=== PATIENT | female | born 1990 | race Caucasian/White ===

== ENCOUNTER 2022-12-14 10:25 | Inpatient (IN) | payer MEDICAID, OTHER ==
[~2022-12-14] VITALS: Ht 157.5 cm; Wt 97.5 kg
[~2022-12-14 10:25] MED LIST: ACYC400T19 PO; AMOX-520 PO; COR3.125 PO; FLUT1BLS3 INH; FURO-149 PO; IPRA4AER INH; LACT1CAP57 PO; PANT20TA2 PO; POTA-197 PO; SER25 PO; SPIR25TA PO
--- NOTE | 2022-12-14 10:32 | NUR ---
Placed in room 05 . Placed on survey research manager, blood pressure machine and pulse oximeter. To gown for exam. Side rails up. Report given to Jose Ramon ROSALES.
[2022-12-14 10:34] VITALS: BP_SYST 120
--- NOTE | 2022-12-14 10:35 | NUR ---
Pt bib caregiver from home with c/o SOB and chest pain x2 days, reports h/o CHF and COPD, currently on home hospice and was told she had fluid overload. Pt was given lasix by hospice nurse but was ineffective. O2 88% on RA upon arrival, RT notified and pt placed on bipap
--- NOTE | 2022-12-14 10:44 | NUR ---
# 20 gauge angiocath placed to LAC. Use of asceptic technique. Opsite placed over site. Blood return noted. Blood for lab drawn from site. Flushed with 10 cc of normal saline. No evidence of infiltration noted. Patient tolerated well.
[2022-12-14] MEDS ORDERED: FUROSEMIDE 100 MG/10 ML VIAL IVP ONE (10:45)
[2022-12-14] MEDS ORDERED: IPRATROPIUM/ALBUTEROL SULFATE 3 ML AMPUL.NEB (DUONEB) INH ONE (10:45)
[2022-12-14] MEDS ORDERED: methylPREDNISolone SOD SUCC/PF 62.5 MG/ML VIAL IVP ONE (10:45)
[2022-12-14 11:03] LABS: BASOPHILS % (AUTO) 0.2 % (0.0-2.0); EOSINOPHILS # (AUTO) 0.1 K/uL (0.0-0.4); EOSINOPHILS % (AUTO) 1.8 % (0.0-4.0); HEMATOCRIT 40.7 % (36-48); HEMOGLOBIN 13.4 g/dL (12.0-16.0); LYMPHOCYTES # (AUTO) 1.2 K/uL (1.0-5.5); LYMPHOCYTES % (AUTO) 17.3 % (20.5-51.5); MEAN CORPUSCULAR HEMOGLOBIN 27 pg (27-31); MEAN CORPUSCULAR HGB CONC 33 % (32-36); MEAN CORPUSCULAR VOLUME 83 fL (79.0-98.0); MONOCYTES # (AUTO) 0.6 K/uL (0.0-1.0); MONOCYTES % (AUTO) 8.9 % (1.7-9.3); NEUTROPHILS # (AUTO) 4.9 K/uL (1.8-7.7); NEUTROPHILS % (AUTO) 71.8 % (40.0-70.0); PLATELET COUNT (AUTO) 132 K/uL (130-430); WHITE BLOOD COUNT (AUTO) 6.8 K/uL (4.8-10.8)
[2022-12-14 11:29] LABS: ANION GAP 15 (5-15); CALCIUM 9.8 mg/dL (8.4-11.0); CHLORIDE 92 mmol/L (98-107); CREATININE 1.84 mg/dL (0.55-1.30); GLUCOSE 91 mg/dL (70-99); UREA NITROGEN, BLOOD 44 mg/dL (8-21)
[2022-12-14 11:30] LABS: GFR AFRICAN AMERICAN 40 mL/min (>90)
[2022-12-14 11:43] LABS: ALANINE AMINOTRANSFERASE 53 U/L (12-78); ASPARTATE AMINOTRANSFERASE 147 U/L (10-37)
[2022-12-14 11:44] LABS: TOTAL BILIRUBIN 10.8 mg/dL (0.0-1.0)
[2022-12-14] MEDS ORDERED: NACL 0.9% 1,000 ML IV ONE (12:45)
[2022-12-14] MEDS ORDERED: DOXYCYCLINE HYCLATE 100 MG in D5W 100 ML IV ONE (12:45)
[2022-12-14] MEDS ORDERED: cefTRIAXone 1 GM in D5W 50 ML IV ONE (12:45)
[2022-12-14] MEDS ORDERED: DOXYCYCLINE HYCLATE 100 MG VIAL IV ONE (12:45)
[2022-12-14] MEDS ORDERED: OSELTAMIVIR PHOSPHATE 75 MG CAPSULE PO ONE (12:45)
[2022-12-14] MEDS ORDERED: cefTRIAXone 1 GM VIAL ONE (12:45)
[2022-12-14] MEDS ORDERED: DOCUSATE SODIUM 100 MG CAPSULE PO PRN (16:30)
[2022-12-14] MEDS ORDERED: LORazepam 2 MG/ML VIAL IVP PRN (16:30)
[2022-12-14] MEDS ORDERED: POTASSIUM CHLORIDE 20 MEQ TAB.PRT.SR PO PRN (16:30)
[2022-12-14] MEDS ORDERED: MAGNESIUM SULFATE 50 ML IV PRN (16:30)
[2022-12-14] MEDS ORDERED: MUPIROCIN 2% TOPICAL OINTMENT 22 GM NS PRN (16:30)
[2022-12-14] MEDS ORDERED: NACL 0.9% 1,000 ML IV SCH (16:30)
--- NOTE | 2022-12-14 19:41 | NUR ---
Admit bed requested Patient will be admitted to care of Dr. COOK. Admitted to TELE unit. Diagnosis ACUTE RESPIRATORY FAILURE Inpatient (Yes or No) YES Observation (Yes or No) NO Orientation concerns or request close to nursing station (Yes or No) NO Covid Status - On vent or bipap NO Isolation requirements INFLUENZA A Needs a sitter NO From Home (Yes or if No enter name of facility) HOME Requires Dialysis (Yes or No) NO Med Rec Completed (Yes of No) NO
--- NOTE | 2022-12-14 19:42 | NUR ---
The pt is received in ED 5. AAO x4. Oxygen is 88% on 6L/NC. Per previous RN, is aware and okay due to COPD. Eating at this time. Denies CP. Slight labored breathing.
[2022-12-14 21:18] LABS: BILIRUBIN,URINE NEGATIVE (NEGATIVE); BLOOD, URINE 2+ (NEGATIVE); CLARITY/URINE CLEAR (CLEAR); COLOR,URINE YELLOW (YELLOW); GLUCOSE,URINE NEGATIVE (NEGATIVE); KETONES,URINE NEGATIVE (NEGATIVE); NITRITE, URINE NEGATIVE (NEGATIVE); PROTEIN URINE NEGATIVE (NEGATIVE); UROBILINOGEN,URINE 0.2 (0.2-1.0)
[2022-12-14 21:30] LABS: BARBITURATE, URINE NEGATIVE (NEG <=200); BENZODIAZEPINE, URINE NEGATIVE (NEG <=150); CANNABINOID, URINE NEGATIVE (NEG <=50); COCAINE, URINE NEGATIVE (NEG <=150); METHAMPHETAMINES SCREEN,URINE POSITIVE (NEG <=500); OPIATE, URINE NEGATIVE (NEG <=100); PHENCYCLIDINE SCREEN,URINE NEGATIVE (NEG <=25); UR TRICYCLIC ANTIDEPRESSANTS NEGATIVE (NEG <=300); URINE AMPHETAMINE POSITIVE (NEG <=500); URINE METHADONE NEGATIVE (NEG <=200); URINE OXYCODONE SCREEN NEGATIVE (NEG <=100); URINE PROPOXYPHENE SCREEN NEGATIVE (NEG <=300)
[2022-12-14 21:33] LABS: LEUKOCYTE ESTERASE ,URINE 1+ (NEGATIVE)
[2022-12-14 21:34] LABS: BACTERIA,URINE FEW /HPF (None Seen); MUCUS,URINE None Seen /LPF (None Seen); RBC,URINE 0-3 /HPF (0-3)
[2022-12-14 22:15] VITALS: BP_SYST 126
--- NOTE | 2022-12-14 22:46 | NUR ---
Patient will be admitted to care of . Admitted to tele unit. Will go to room 125 A. Belongings list completed. Complete and up to date summary report printed. SBAR report given to BOBBY Clements at bedside with opportunity for questions.
[2022-12-14] MEDS: FUROSEMIDE 40 MG/4 ML VIAL IVP SCH (23:24)
--- NOTE | 2022-12-14 23:47 | NUR ---
THIS RN TO CALL THE VOICEMAIL OF DR. MARKS FOR REVIEW OF HOME MEDICATIONS TO CONTINUE. AWAITING RETURN CALL- CHARGE NURSE AWARE.
[2022-12-15] MEDS ORDERED: NALOXONE HCL 0.4 MG/ML AMP (NARCAN) IVP PRN (00:30)
[2022-12-15] MEDS ORDERED: NAPROXEN 250 MG TABLET PO PRN (00:30)
[2022-12-15] MEDS: HYDROcodone/ACETAMIN 10-325 MG TAB PO PRN (00:58)
[2022-12-15] MEDS ORDERED: OSELTAMIVIR PHOSPHATE 6 MG/1 ML, 60 ML SUSP ONE (01:11)
[2022-12-15] MEDS: OSELTAMIVIR PHOSPHATE 6 MG/1 ML, 60 ML SUSP PO SCH ×3 (01:16→21:43)
[2022-12-15] MEDS: IPRATROPIUM/ALBUTEROL SULFATE 3 ML AMPUL.NEB (DUONEB) INH PRN ×2 (02:11→08:34)
--- NOTE | 2022-12-15 05:14 | NUR ---
CONSULTATION PAGED/CALLED Reason for Consultation: RESP. FAILURE Person Who was Notified: DEREK Consulting Physician: ARIANNA Police Detention Attendant Specialty: Ordering Physician: TRENTON
--- NOTE | 2022-12-15 05:25 | NUR ---
CONSULTATION PAGED/CALLED Reason for Consultation: INFLUENZA Person Who was Notified: HOLDEN Consulting Physician: Kim LAW Cloth Beamer Specialty: Ordering Physician: JOYCE
--- NOTE | 2022-12-15 05:27 | NUR ---
CONSULTATION PAGED/CALLED Reason for Consultation: CHF Person Who was Notified: DR Josefina SANDOVAL VIA TEXT Consulting Physician: DR SAM SANDOVAL IS SOFTWARE DEVELOPMENT LEADER Cryptanalyst Specialty: Ordering Physician: TRENTON Addendum: 12/15/22 at 0529 by Jocelyn Brown CNA ORDERED BY JOYCE
--- NOTE | 2022-12-15 06:20 | NUR ---
PT WITH AN UNEVENTFUL SHIFT. THIS RN TO SEND A URINE CULTURE MD ORDERED. K NOTED 3.1 ON ADMISSION- REPLACED WITH 40Meq PO. NOTE TAMIFLU PLACED IN REFRIGERATOR DIRECTED. THIS RN TO ENDORSE TO TAKE PICTURE OF BLE D/T DISCOLORATION, SKIN INTEGRITY INTACT. PT VOICES UNDERSTANDING OF NOT TAKING HOME MEDICATIONS AND WILL HAVE FAMILY COME PICK THEM UP OR PLACE IN SECURITY UNTIL DISCHARGE. PT AWARE OF MD ORDERS THIS MORNING AND AGREES TO POC. -NOTE ORDERS FOR BLOOD CULTURES- POSSIBLY PENDING IN LAB ALREADY.
--- NOTE | 2022-12-15 06:29 | NUR ---
THIS RN INFORMED BY EMMANUELLE STATON -CALLING CONSULTS THAT [facility] WASN'T CONSULTED D/T CHANGE IN ADMITTING PHYSICIAN. PLEASE CLARIFY WITH DR. MARKS IF HE WANTS A NEPHRO CONSULT PLACED AND WHO TO CONSULT. THIS RN ENDORSING TO ONCOMING MORNING NURSE.
[2022-12-15 07:04] LABS: ALBUMIN 2.8 g/dL (3.4-4.8); CALCIUM 9.3 mg/dL (8.4-11.0); CREATININE 1.57 mg/dL (0.55-1.30); THYROID STIMULATING HORMONE 1.7 uIu/mL (0.34-4.82); TOTAL BILIRUBIN 8.4 mg/dL (0.0-1.0)
--- NOTE | 2022-12-15 07:30 | NUR ---
OPENING NOTE Patient sitting up in bed resting and eating breakfast, no sign of distress and patient denies pain. Patient educated on breathing techniques while eating and to refrain from talking excessively without taking a deep breath through her nose. Patient's oxygenation currently 88% on 6L HFNC. When speaking or eating quickly, patient's oxygen was observed to drop down to 84%. All needs met at this time and safety checks made.
[2022-12-15 08:00] VITALS: BP_SYST 101
[2022-12-15] MEDS: cefTRIAXone 1 GM in D5W 50 ML IV SCH (08:38)
[2022-12-15] MEDS: FUROSEMIDE 40 MG/4 ML VIAL IVP SCH ×2 (08:39→21:37)
--- NOTE | 2022-12-15 08:39 | NUR ---
Scheduled IVP abx and IVP medication given per order. Patient receiving breathing treatment with RT Rani at bedside. Patient stable at this time.
[2022-12-15 09:02] LABS: BASOPHILS # (AUTO) 0.1 K/uL (0.0-0.2); BASOPHILS % (AUTO) 1.6 % (0.0-2.0); EOSINOPHILS % (AUTO) 0.4 % (0.0-4.0); HEMATOCRIT 40.1 % (36-48); HEMOGLOBIN 13.3 g/dL (12.0-16.0); LYMPHOCYTES # (AUTO) 0.6 K/uL (1.0-5.5); LYMPHOCYTES % (AUTO) 8.1 % (20.5-51.5); MEAN CORPUSCULAR HEMOGLOBIN 28 pg (27-31); MEAN CORPUSCULAR HGB CONC 33 % (32-36); MEAN CORPUSCULAR VOLUME 84 fL (79.0-98.0); MONOCYTES # (AUTO) 0.1 K/uL (0.0-1.0); MONOCYTES % (AUTO) 1.8 % (1.7-9.3); NEUTROPHILS # (AUTO) 6.5 K/uL (1.8-7.7); NEUTROPHILS % (AUTO) 88.1 % (40.0-70.0); PLATELET COUNT (AUTO) 104 K/uL (130-430); RED BLOOD CELL COUNT(AUTO) 4.78 MIL/uL (4.2-6.2); RED CELL DISTRIBUTION WIDTH 21.3 % (9.0-15.0); WHITE BLOOD COUNT (AUTO) 7.4 K/uL (4.8-10.8)
[2022-12-15] MEDS: MAGNESIUM OXIDE 400 MG TABLET PO SCH ×2 (09:03→21:38)
[2022-12-15] MEDS: SPIRONOLACTONE 25 MG TABLET (ALDACTONE) PO SCH (09:03)
[2022-12-15] MEDS: CARVEDILOL 3.125 MG TABLET (COREG) PO SCH ×2 (09:04→21:38)
--- NOTE | 2022-12-15 09:18 | NUR ---
Patient stable; resting comfortably in bed with 2D echo in progress and Priscila (tech) at bedside.
--- NOTE | 2022-12-15 11:23 | NUR ---
ROUNDS Patient in bed resting, nasal cannula in place on 6L. Educated patient on deep breathing techniques. Patient has been noncompliant with wearing her oxygen and frequently takes it off to move around in bed or to the bedside commode. Educated the patient and provided comfort measures. All needs met at this time and safety checks made.
[2022-12-15 12:46] VITALS: BP_SYST 105
--- NOTE | 2022-12-15 14:30 | NUR ---
BUBBLE STUDY Patient receiving bubble study with Dr Alexander, pyrotechnic mixer and RN at bedside. Patient tolerated procedure well. All needs met at this time and safety checks made.
--- NOTE | 2022-12-15 15:09 | NUR ---
CONSULTATION REASON FOR CONSULT: UTI/SEPSIS CONSULTING PHYSICIAN: Chuyita LAW ORDERED BY: JOYCE SPOKE WITH CALEB FROM [facility]SW[facility]ING SERVICES [phone]
[2022-12-15] MEDS ORDERED: ISOSORBIDE MONONITRATE 30 MG TAB.ER.24H PO ONE (17:15)
[2022-12-15 17:19] VITALS: BP_SYST 105
[2022-12-15] MEDS ORDERED: POTASSIUM CHLORIDE 20 MEQ TAB.PRT.SR PO ONE (17:30)
[2022-12-15] MEDS: HYDROCORTISONE 1% 28.35 GM TOPICAL OINT. TP SCH (17:57)
--- NOTE | 2022-12-15 19:17 | NUR ---
CLOSING NOTE Patient sitting up in bed eating dinner, no sign of distress and patient denies pain. Patient has been increasingly compliant with wearing her nasal cannula throughout the shift. Breathing is even and nonlabored. Patient has been updated on the plan of care, verbalized understanding. Droplet precautions in place, patient educated on isolation precautions. All needs met at this time and safety checks made.
[2022-12-15 20:10] VITALS: BP_SYST 109
[2022-12-15] MEDS: SACUBITRIL/VALSARTAN 24 MG-26 MG 1 TABLET PO SCH (21:38)
[2022-12-16] VITALS: BP_SYST 101
[2022-12-16 06:28] LABS: BASOPHILS % (AUTO) 0.1 % (0.0-2.0); EOSINOPHILS % (AUTO) 0.1 % (0.0-4.0); HEMATOCRIT 40.5 % (36-48); HEMOGLOBIN 13.1 g/dL (12.0-16.0); LYMPHOCYTES # (AUTO) 0.7 K/uL (1.0-5.5); LYMPHOCYTES % (AUTO) 4.8 % (20.5-51.5); MEAN CORPUSCULAR HEMOGLOBIN 27 pg (27-31); MEAN CORPUSCULAR HGB CONC 32 % (32-36); MEAN CORPUSCULAR VOLUME 85 fL (79.0-98.0); MONOCYTES # (AUTO) 0.9 K/uL (0.0-1.0); MONOCYTES % (AUTO) 5.9 % (1.7-9.3); NEUTROPHILS # (AUTO) 13.2 K/uL (1.8-7.7); NEUTROPHILS % (AUTO) 89.1 % (40.0-70.0); PLATELET COUNT (AUTO) 91 K/uL (130-430); RED BLOOD CELL COUNT(AUTO) 4.75 MIL/uL (4.2-6.2); RED CELL DISTRIBUTION WIDTH 22.3 % (9.0-15.0); WHITE BLOOD COUNT (AUTO) 14.7 K/uL (4.8-10.8)
[2022-12-16 06:49] LABS: CALCIUM 8.7 mg/dL (8.4-11.0); CREATININE 1.23 mg/dL (0.55-1.30)
--- NOTE | 2022-12-16 06:55 | NUR ---
THIS RN MAKING FINAL ROUNDS AND PATIENT VOICED HER CONCERN TO HER LEFT UPPER ARM BEING SWOLLEN AND THAT SHE HAD PREVIOUSLY HAD A BLOOD CLOT THERE ONCE. NOTE 20G IV TO LEFT AC WITHOUT S/S OF INFILTRATION OR REDNESS. WILL ENDORSE TO ONCOMING NURSE TO INFORM MD OF PATIENT CONCERNS. NOTE I/O'S THIS SHIFT- THIS RN TO REMIND HOUSEHOLD CHORES'S AND OTHER STAFF TO MEASURE URINE IN BSC FOR ACCURATE I/O'S. DURING THE COURSE OF THE SHIFT, THIS RN WAS CONCERNED IN REGARDS TO RETENTION ( NOTE JVD)- PT ENCOURAGED TO GET UP AND VOID WHILE I WAS PRESENT AT THE BEDSIDE TO AVOID BLADDER SCANNING IF POSSIBLE- SHE VOIDED AND ACCURATE AMOUNT (NOTE I/O'S). WILL ENDORSE TO MONITOR THIS SHIFT AND ENCOURAGE PATIENT TO GET UP AND VOID. CONTINUE PLAN OF CARE.
[2022-12-16] MEDS: CARVEDILOL 3.125 MG TABLET (COREG) PO SCH ×2 (09:00→21:00)
[2022-12-16] MEDS: SPIRONOLACTONE 25 MG TABLET (ALDACTONE) PO SCH (09:00)
[2022-12-16] MEDS: SACUBITRIL/VALSARTAN 24 MG-26 MG 1 TABLET PO SCH ×2 (09:00→21:00)
[2022-12-16] MEDS: ISOSORBIDE MONONITRATE 30 MG TAB.ER.24H PO SCH (09:00)
[2022-12-16] MEDS: FUROSEMIDE 40 MG/4 ML VIAL IVP SCH ×2 (09:00→20:57)
[2022-12-16 11:27] VITALS: BP_SYST 97
[2022-12-16] MEDS: MAGNESIUM OXIDE 400 MG TABLET PO SCH ×2 (12:32→21:09)
[2022-12-16] MEDS: cefTRIAXone 1 GM in D5W 50 ML IV SCH (12:32)
[2022-12-16] MEDS: HYDROCORTISONE 1% 28.35 GM TOPICAL OINT. TP SCH (12:33)
[2022-12-16] MEDS: OSELTAMIVIR PHOSPHATE 6 MG/1 ML, 60 ML SUSP PO SCH ×2 (13:18→21:28)
[2022-12-16 17:05] VITALS: BP_SYST 82
--- NOTE | 2022-12-16 19:25 | NUR ---
OPENING NOTE PT IS SEMI FOWLERS IN BED WITH EYES CLOSED. NO APPARENT SIGNS OF DISTRESS NOTED AT THIS TIME. BED IS IN LOWEST POSITION WITH SAFETY PRECAUTIONS IN PLACE. CALL LIGHT WITHIN REACH.
[2022-12-16 20:00] VITALS: BP_SYST 87
[2022-12-16] MEDS: CYCLOBENZAPRINE HCL 10 MG TABLET (FLEXERIL) PO PRN (21:09)
[2022-12-16] MEDS: ZOLPIDEM TARTRATE 5 MG TABLET PO PRN (21:09)
[2022-12-17] VITALS (7 sets, daily range): BP systolic 85–107
--- NOTE | 2022-12-17 02:00 | NUR ---
ROUNDS PT LYING IN BED WITH EYES CLOSED. NO APPARENT DISTRESS. CALL LIGHT WITHIN REACH.
--- NOTE | 2022-12-17 04:22 | NUR ---
ROUNDS PT LYING IN BED WITH EYES CLOSED. NO APPARENT DISTRESS. CALL LIGHT WITHIN REACH.
--- NOTE | 2022-12-17 06:42 | NUR ---
CLOSING NOTE PT IS SITTING WITH FEET DANGLING IN BED. NO APPARENT SIGNS OF DISTRESS NOTED AT THIS TIME. BED IS IN LOWEST POSITION WITH SAFETY PRECAUTIONS IN PLACE. CALL LIGHT WITHIN REACH.
[2022-12-17 07:08] LABS: EOSINOPHILS # (AUTO) 0.1 K/uL (0.0-0.4); EOSINOPHILS % (AUTO) 0.8 % (0.0-4.0); HEMATOCRIT 39.8 % (36-48); LYMPHOCYTES % (AUTO) 10.8 % (20.5-51.5); MEAN CORPUSCULAR HEMOGLOBIN 28 pg (27-31); MEAN CORPUSCULAR HGB CONC 33 % (32-36); MEAN CORPUSCULAR VOLUME 85 fL (79.0-98.0); MONOCYTES % (AUTO) 10.5 % (1.7-9.3); NEUTROPHILS # (AUTO) 7.5 K/uL (1.8-7.7); NEUTROPHILS % (AUTO) 77.9 % (40.0-70.0); PLATELET COUNT (AUTO) 82 K/uL (130-430); RED BLOOD CELL COUNT(AUTO) 4.67 MIL/uL (4.2-6.2); RED CELL DISTRIBUTION WIDTH 22.6 % (9.0-15.0); WHITE BLOOD COUNT (AUTO) 9.6 K/uL (4.8-10.8)
[2022-12-17 07:17] LABS: CALCIUM 8.5 mg/dL (8.4-11.0); CREATININE 1.57 mg/dL (0.55-1.30)
[2022-12-17] MEDS: SACUBITRIL/VALSARTAN 24 MG-26 MG 1 TABLET PO SCH ×2 (09:00→21:00)
[2022-12-17] MEDS: SPIRONOLACTONE 25 MG TABLET (ALDACTONE) PO SCH (09:00)
[2022-12-17] MEDS: ISOSORBIDE MONONITRATE 30 MG TAB.ER.24H PO SCH (09:00)
[2022-12-17] MEDS: FUROSEMIDE 40 MG/4 ML VIAL IVP SCH ×2 (09:00→21:00)
[2022-12-17] MEDS: CARVEDILOL 3.125 MG TABLET (COREG) PO SCH ×2 (09:00→21:00)
--- NOTE | 2022-12-17 09:00 | NUR ---
patients bp 96/50, all bp meds held at this time product director made aware
[2022-12-17] MEDS: MAGNESIUM OXIDE 400 MG TABLET PO SCH ×2 (09:20→21:00)
[2022-12-17] MEDS: cefTRIAXone 1 GM in D5W 50 ML IV SCH (09:21)
[2022-12-17] MEDS: OSELTAMIVIR PHOSPHATE 6 MG/1 ML, 60 ML SUSP PO SCH (09:23)
[2022-12-17] MEDS: HYDROCORTISONE 1% 28.35 GM TOPICAL OINT. TP SCH (09:37)
--- NOTE | 2022-12-17 10:00 | NUR ---
telephone call to notify desire transfer specialist of abnormal abg results, advised to maintain patient on 6lpm o2 via oximizer and monitor patients respiratory status
[2022-12-17] MEDS ORDERED: OSELTAMIVIR PHOSPHATE 6 MG/1 ML, 60 ML SUSP PO ONE (11:45)
--- NOTE | 2022-12-17 12:41 | NUR ---
telephone call to Dr. Bee to update steve on patients condition, no new orders at this time, will see patient during rounds this afternoon
--- NOTE | 2022-12-17 13:31 | NUR ---
Senior User Experience Architect STAMPING DIE TRY OUT WORKER called pts. former hospice co. Iv[facility], who stated yes indeed this is a former hospice pt. but pt. was discharged from hospice care with them since pt. went to the E.D. on 12/04. Iveth continued to say a revocation letter was not signed, pt was discharged, but they will need to get a revocation. Additionally, pt. will continue to meet criteria for hospice so [facility] will take pt. back. STAMPING DIE TRY OUT WORKER thanked her for info. STAMPING DIE TRY OUT WORKER will meet with pt. to see if she would like to go back on hospice
--- NOTE | 2022-12-17 13:42 | NUR ---
Dietitian Recommendations * Continue Cardiac diet * If intake drops below 50%, consider liberalizing diet * Ordered: Ensure BID GS, MPH, RD Please refer to RD Assessment for further details. Thanks! Addendum: 12/17/22 at [address] Amended: Links added.
--- NOTE | 2022-12-17 14:00 | NUR ---
PATIENT RESTING IN BED, NC NOT IN PLACE, SAO2 90%, OXYGEN DEVICE SECURED, RESPONSIVE TO TACTILE STIMULI, NO OUTWARD S/SX OF PAIN OR DISCOMFORT OBSERVED, SAO2 93 UPON REASSESSMENT
--- NOTE | 2022-12-17 17:30 | NUR ---
ORDERS OBTAINED FROM DR. CONWAY FOR PRN BIPAP
--- NOTE | 2022-12-17 19:20 | NUR ---
OPENING NOTE PT IS LYING IN BED WITH EYES CLOSED, PT LETHARGIC AND HARD TO AROUSE. NO APPARENT DISTRESS AT THIS TIME.BED IN LOWESTPOSITIONWITH FALL AND SAFETY PRECAUTIONS IN PLACE. CALL LIGHT WITHIN REACH.
[2022-12-17] MEDS: OSELTAMIVIR PHOSPHATE 75 MG CAPSULE PO SCH (21:00)
--- NOTE | 2022-12-17 21:30 | NUR ---
RT NOTES. PLACED PT ON BIPAP DUE TO LOW SPO2 AND PT BEING LETHARGIC @2049. PT TOLERATING WELL. NO RESP. DISTRESS NOTED. WILL CONTINUE TO MONITOR.
--- NOTE | 2022-12-17 21:55 | NUR ---
PAGED DR Mohini SANDOVAL PTS BP 85/54. ORDERED TRANSFER PT TO ICU AND START ON LEVOPHED
[2022-12-17] MEDS ORDERED: NOREPINEPHRINE BITARTRATE 4 MG in D5W 246 ML IV PRN (23:15)
--- NOTE | 2022-12-17 23:30 | NUR ---
ICU TRANSFER PATIENT CAME FROM [facility]. PATIENT AWAKE BUT DROWSY. O2 VIA NC. SR ON MONITOR. SAFETY PRECAUTIONS IN PLACE, CALL LIGHT WITHIN REACH. WILL CONTINUE TO MONITOR.
--- NOTE | 2022-12-17 23:35 | NUR ---
PT TRANSFERRED TO ICU 1 BEDSIDE REPORT GIVEN, ALL QUESTIONS ANSWERED. ALL PT BELONGINGS TRANSFERRED.
--- NOTE | 2022-12-17 23:57 | NUR ---
NOTIFICATION OF NEXT OF KIN CALLED PT FATHER, SRIKANTH POLK, AT [phone] TO INFORM HIM OF PT BEING TRANSFERRED TO ICU. NO ANSWER AT THIS TIME. LEFT MESSAGE AND AWAITING CALL BACK.
[2022-12-18] VITALS (23 sets, daily range): BP systolic 85–112
--- NOTE | 2022-12-18 00:14 | NUR ---
RT NOTES. PT IS MORE ALERT. PT TRANSFERRED TO ICU1 WITH NO INCIDENTS. PLACED ON 6L OXY FOR TRANSFER. PLACED BACK ON BIPAP. ONCE IN ICU. NO RESP. DISTRESS NOTED. WILL CONTINUE TO MONITOR.
--- NOTE | 2022-12-18 02:15 | NUR ---
BELONGINGS LIST COMPLETED. PATIENT AT BEDSIDE AWARE.
[2022-12-18 06:13] LABS: BASOPHILS # (AUTO) 0.1 K/uL (0.0-0.2); BASOPHILS % (AUTO) 0.6 % (0.0-2.0); EOSINOPHILS # (AUTO) 0.2 K/uL (0.0-0.4); EOSINOPHILS % (AUTO) 2.1 % (0.0-4.0); HEMATOCRIT 41.5 % (36-48); HEMOGLOBIN 13.8 g/dL (12.0-16.0); LYMPHOCYTES # (AUTO) 0.9 K/uL (1.0-5.5); MEAN CORPUSCULAR HEMOGLOBIN 28 pg (27-31); MEAN CORPUSCULAR HGB CONC 33 % (32-36); MEAN CORPUSCULAR VOLUME 83 fL (79.0-98.0); MONOCYTES # (AUTO) 0.8 K/uL (0.0-1.0); MONOCYTES % (AUTO) 9.4 % (1.7-9.3); NEUTROPHILS # (AUTO) 6.6 K/uL (1.8-7.7); NEUTROPHILS % (AUTO) 76.9 % (40.0-70.0); PLATELET COUNT (AUTO) 73 K/uL (130-430); RED CELL DISTRIBUTION WIDTH 22.2 % (9.0-15.0); WHITE BLOOD COUNT (AUTO) 8.5 K/uL (4.8-10.8)
--- NOTE | 2022-12-18 06:15 | NUR ---
IV RE-INSERTION: Swelling noted to IV site. 20ga Restarted on left forearm . Successful after 1 attempts. Will observe for any signs of infiltration.
--- NOTE | 2022-12-18 06:25 | NUR ---
IV PLACEMENT: # 20 gauge angiocath placed to right forearm. Use of asceptic technique. Opsite placed over site. Blood return noted. Flushed with 10 cc of normal saline. No evidence of infiltration noted. Patient tolerated well.
[2022-12-18 06:45] LABS: CALCIUM 8.8 mg/dL (8.4-11.0); CREATININE 1.35 mg/dL (0.55-1.30)
--- NOTE | 2022-12-18 06:55 | NUR ---
rt notes 0655 Offloaded pt on Addendum: 12/18/22 at 0816 by Stephanie Xiong RT rt notes 0655 Offloaded pt from bipap. placed pt on 6L oxymizer, coached pt to breathe through nose and do deep breathing. Pt alert/awake. Pt saturating 93%. no distress at this time.
--- NOTE | 2022-12-18 07:15 | NUR ---
ENDORSEMENT PATIENT CARE ENDORSED TO MARIANA ROSALES.
--- NOTE | 2022-12-18 07:15 | NUR ---
RECEIVED REPORT FROM NIGHTSHIFT RN, PT IN BED #1, RESTING, NAD, VSS, AROUSABLE, AAOX3. PT TRANSFERRED LAST NIGHT D/T HYPOTENSION. HAS REMAINED NORMOTENSIVE THROUGH THE NIGHT, PT AWAITING ADDITIONAL ASSESSMENTS FOR PLAN OF CARE AND DISPOSITION.
[2022-12-18] MEDS: FUROSEMIDE 40 MG/4 ML VIAL IVP SCH ×2 (08:49→21:14)
[2022-12-18] MEDS: SPIRONOLACTONE 25 MG TABLET (ALDACTONE) PO SCH (08:50)
[2022-12-18] MEDS: MAGNESIUM OXIDE 400 MG TABLET PO SCH ×2 (08:50→21:15)
[2022-12-18] MEDS: ISOSORBIDE MONONITRATE 30 MG TAB.ER.24H PO SCH (08:50)
[2022-12-18] MEDS: OSELTAMIVIR PHOSPHATE 75 MG CAPSULE PO SCH ×2 (08:50→21:15)
[2022-12-18] MEDS: SACUBITRIL/VALSARTAN 24 MG-26 MG 1 TABLET PO SCH ×2 (08:50→21:14)
[2022-12-18] MEDS: CARVEDILOL 3.125 MG TABLET (COREG) PO SCH ×2 (08:50→21:00)
[2022-12-18] MEDS: HYDROCORTISONE 1% 28.35 GM TOPICAL OINT. TP SCH (08:51)
[2022-12-18] MEDS: cefTRIAXone 1 GM in D5W 50 ML IV SCH (09:06)
--- NOTE | 2022-12-18 12:40 | NUR ---
Flight Communications Specialist SEAMLESS HOSIERY KNITTER received a referral for pt SEAMLESS HOSIERY KNITTER met with pt. in ICU. Pt had a hard time speaking but was able to participate in this interview. Pt. stated why she was in the hospital, but left out the part of being positive for drugs. Pt. confirmed she was a Hospice pt. with [facility], and that she would like to go back onto Hospice once she is discharged because her prognosis is terminal. Pt. stated she can't go back home because her dad kicked her out. He can't take care of her. When asked pt. stated dad lives in home with a bunch of people who also use drugs. Pt. stated she completed a 45 day drug program in [place], "[facility]" in 2009. Pt. does not want to participate in another program, but wants to go to a facility with hospice services. Pt. does not want SEAMLESS HOSIERY KNITTER to call her fa. SEAMLESS HOSIERY KNITTER asked pt if there was any other people she has as a support. Pt. said no. SEAMLESS HOSIERY KNITTER called Iveth from [facility] who agreed to continue to look for a facility and resume hospice service. SEAMLESS HOSIERY KNITTER will remain available as needed.
[2022-12-19] VITALS (20 sets, daily range): BP systolic 81–138
[2022-12-19] MEDS: PIPERACILLIN/TAZO 4.5GM/DEX-IS 100 ML IV SCH ×3 (06:47→22:05)
--- NOTE | 2022-12-19 07:30 | NUR ---
SBAR REPORT RECEIVED FROM LAURA ROSALES, ALL CARES ASSUMED. PT RESTING WITH EYES OPEN, ON 6L OXYMIZER. IV ANTIBIOTICS INFUSING TO RIGHT FOREARM. BED IN LOW AND LOCKED POSITION. CALL LIGHT WITHIN REACH.
[2022-12-19 07:49] LABS: BASOPHILS # (AUTO) 0.1 K/uL (0.0-0.2); BASOPHILS % (AUTO) 1.5 % (0.0-2.0); EOSINOPHILS # (AUTO) 0.3 K/uL (0.0-0.4); EOSINOPHILS % (AUTO) 4.1 % (0.0-4.0); HEMATOCRIT 40.6 % (36-48); HEMOGLOBIN 13.5 g/dL (12.0-16.0); LYMPHOCYTES # (AUTO) 0.6 K/uL (1.0-5.5); LYMPHOCYTES % (AUTO) 7.9 % (20.5-51.5); MEAN CORPUSCULAR HEMOGLOBIN 27 pg (27-31); MEAN CORPUSCULAR HGB CONC 33 % (32-36); MEAN CORPUSCULAR VOLUME 83 fL (79.0-98.0); MONOCYTES # (AUTO) 0.7 K/uL (0.0-1.0); MONOCYTES % (AUTO) 8.1 % (1.7-9.3); NEUTROPHILS # (AUTO) 6.3 K/uL (1.8-7.7); NEUTROPHILS % (AUTO) 78.4 % (40.0-70.0); PLATELET COUNT (AUTO) 78 K/uL (130-430); RED BLOOD CELL COUNT(AUTO) 4.91 MIL/uL (4.2-6.2); RED CELL DISTRIBUTION WIDTH 22.4 % (9.0-15.0)
[2022-12-19 07:56] LABS: CALCIUM 8.6 mg/dL (8.4-11.0); CREATININE 1.39 mg/dL (0.55-1.30)
--- NOTE | 2022-12-19 08:40 | NUR ---
PT HAD ONE BM ON BEDPAN. ASSISTED WITH TURNING. VSS.
[2022-12-19] MEDS: CARVEDILOL 3.125 MG TABLET (COREG) PO SCH ×2 (09:00→21:00)
[2022-12-19] MEDS: ISOSORBIDE MONONITRATE 30 MG TAB.ER.24H PO SCH (10:09)
[2022-12-19] MEDS: OSELTAMIVIR PHOSPHATE 75 MG CAPSULE PO SCH ×2 (10:09→22:03)
[2022-12-19] MEDS: DOXYCYCLINE HYCLATE 100 MG CAPSULE PO SCH ×2 (10:09→22:03)
[2022-12-19] MEDS: SPIRONOLACTONE 25 MG TABLET (ALDACTONE) PO SCH (10:10)
[2022-12-19] MEDS: MAGNESIUM OXIDE 400 MG TABLET PO SCH ×2 (10:11→22:03)
[2022-12-19] MEDS: FUROSEMIDE 40 MG/4 ML VIAL IVP SCH ×2 (10:12→21:00)
[2022-12-19] MEDS: SACUBITRIL/VALSARTAN 24 MG-26 MG 1 TABLET PO SCH ×2 (10:13→21:00)
[2022-12-19] MEDS: HYDROCORTISONE 1% 28.35 GM TOPICAL OINT. TP SCH (10:14)
--- NOTE | 2022-12-19 12:10 | NUR ---
PT ASSISTED WITH SPONGE BATH. BED LINENS CHANGED. PT WORK OF BREATHING SLIGHTLY INCREASED WHILE SITTING UP IN CHAIR. VITAL SIGNS WNL. PT DENIES FURTHER NEEDS AT THIS TIME.
--- NOTE | 2022-12-19 18:15 | NUR ---
PT TRANSFERRED TO ROOM 110-B. [employer] [facility] [employer] REPORT GIVEN TO HORACE ROSALES, ALL CARES ENDORSED. Addendum: 12/19/22 at 1906 by Toy [facility] Araceli, BOBBY ROSALES pt resting quietly in bed having dinner no s/s of distress at this time. placed on heart monitor. vitals bp 107/54, hr 88, O2 6l with oximizer and resp 30. denies any needs at this time.
[2022-12-19] MEDS ORDERED: ALBUMIN HUMAN 25% 200 ML IV ONE (21:15)
--- NOTE | 2022-12-19 21:20 | NUR ---
LOW BP/MD ORDERS BP 86/49, 81/49 on recheck. Patient AOx4 but slightly drowsier than start of shift. Notified Dr. Palmer who gave order for albumin x1 and requested staff to notify Dr. Mohini Jhaveri. Notified Dr. Mohini Jhaveri who stated to give albumin as ordered by Dr. Palmer, and then if SBP still <90, to give 250mL NS bolus and notify him (Dr. Mohini Jhaveri).
[2022-12-20] VITALS (7 sets, daily range): BP systolic 91–133
[2022-12-20] MEDS: NS 250 ML IV ONE ×2 (00:35→03:37)
--- NOTE | 2022-12-20 03:37 | NUR ---
BP 133/92 following administration of albumin. 250mL NS bolus not administered since SBP>90. Patient AOx4, more alert than before. Ambulated to bathroom and back with assist, no dizziness. O2 sat 100% on 6L Oxymizer. Safety precautions in place.
[2022-12-20] MEDS: PIPERACILLIN/TAZO 4.5GM/DEX-IS 100 ML IV SCH ×3 (06:46→22:25)
--- NOTE | 2022-12-20 07:45 | NUR ---
OPENING NOTE Received report from BOBBY Mckeon. Upon entering room, patient is laying in bed, alert and oriented x4. She denies pain or discomfort at this time. Left arm is visualized as very edematous. IV sites intact at this time. Will D/C L wrist. Call light within reach. Safety precautions observed.
--- NOTE | 2022-12-20 07:58 | NUR ---
CLOSING Patient resting in bed, unlabored breathing on 6L oxymizer. At shift change this morning, patient reported pain in left arm which is visibly more swollen than right arm. Patient states she had a DVT in her left arm and PE two years ago and the pain feels similar. Informed charge nurse and oncoming nurse, endorsed to call physician. Patient ambulated to bathroom with assist, no dizziness noted. Received albuminx1 and scheduled IV antibiotics during shift. Safety precautions in place.
[2022-12-20 08:05] LABS: BASOPHILS # (AUTO) 0.1 K/uL (0.0-0.2); BASOPHILS % (AUTO) 0.7 % (0.0-2.0); EOSINOPHILS # (AUTO) 0.4 K/uL (0.0-0.4); EOSINOPHILS % (AUTO) 4.3 % (0.0-4.0); HEMATOCRIT 38.3 % (36-48); HEMOGLOBIN 12.3 g/dL (12.0-16.0); LYMPHOCYTES # (AUTO) 0.7 K/uL (1.0-5.5); LYMPHOCYTES % (AUTO) 7.7 % (20.5-51.5); MEAN CORPUSCULAR HEMOGLOBIN 27 pg (27-31); MEAN CORPUSCULAR HGB CONC 32 % (32-36); MEAN CORPUSCULAR VOLUME 85 fL (79.0-98.0); MONOCYTES # (AUTO) 1.1 K/uL (0.0-1.0); MONOCYTES % (AUTO) 13.1 % (1.7-9.3); NEUTROPHILS # (AUTO) 6.2 K/uL (1.8-7.7); NEUTROPHILS % (AUTO) 74.2 % (40.0-70.0); RED BLOOD CELL COUNT(AUTO) 4.51 MIL/uL (4.2-6.2); RED CELL DISTRIBUTION WIDTH 22.6 % (9.0-15.0); WHITE BLOOD COUNT (AUTO) 8.4 K/uL (4.8-10.8)
[2022-12-20 08:26] LABS: CALCIUM 8.8 mg/dL (8.4-11.0); CREATININE 1.58 mg/dL (0.55-1.30)
[2022-12-20 08:35] LABS: PLATELET COUNT (AUTO) 82 K/uL (130-430)
[2022-12-20] MEDS: HYDROCORTISONE 1% 28.35 GM TOPICAL OINT. TP SCH (09:00)
[2022-12-20] MEDS: SACUBITRIL/VALSARTAN 24 MG-26 MG 1 TABLET PO SCH ×2 (09:00→21:00)
[2022-12-20] MEDS: MAGNESIUM OXIDE 400 MG TABLET PO SCH ×2 (09:46→22:24)
[2022-12-20] MEDS: ISOSORBIDE MONONITRATE 30 MG TAB.ER.24H PO SCH (09:46)
[2022-12-20] MEDS: OSELTAMIVIR PHOSPHATE 75 MG CAPSULE PO SCH ×2 (09:46→22:24)
[2022-12-20] MEDS: SPIRONOLACTONE 25 MG TABLET (ALDACTONE) PO SCH (09:48)
[2022-12-20] MEDS: DOXYCYCLINE HYCLATE 100 MG CAPSULE PO SCH ×2 (09:48→22:24)
[2022-12-20] MEDS: CARVEDILOL 3.125 MG TABLET (COREG) PO SCH ×2 (09:48→21:00)
[2022-12-20] MEDS: FUROSEMIDE 40 MG/4 ML VIAL IVP SCH ×2 (09:49→22:24)
--- NOTE | 2022-12-20 14:07 | NUR ---
RN ROUNDS Patient laying in bed at this time. She denies pain or discomfort. IV site visualized as intact and saline locked. Call light within reach. Safety precautions observed.
[2022-12-20] MEDS: HYDROcodone/ACETAMIN 10-325 MG TAB PO PRN (14:44)
--- NOTE | 2022-12-20 19:30 | NUR ---
CLOSING NOTE Report endorsed to BOBBY Mckeon for continuity of care. Patient sitting up at side of bed eating dinner at this time. Patient denies pain. Call light within reach. Safety precautions observed.
--- NOTE | 2022-12-20 20:00 | NUR ---
Patient resting in bed, unlabored breathing on 5L Oxymizer. Edema to all extremities, denies pain currently. Safety precautions in place.
--- NOTE | 2022-12-20 22:00 | NUR ---
Patient's BP 96/54. Spoke with Dr. Mohini Jhaveri who gave hold parameters for Coreg and Entresto.
[2022-12-21] VITALS (7 sets, daily range): BP systolic 90–137
[2022-12-21] MEDS: PIPERACILLIN/TAZO 4.5GM/DEX-IS 100 ML IV SCH ×3 (06:36→21:42)
[2022-12-21 07:06] LABS: BASOPHILS # (AUTO) 0.1 K/uL (0.0-0.2); BASOPHILS % (AUTO) 1.8 % (0.0-2.0); EOSINOPHILS # (AUTO) 0.4 K/uL (0.0-0.4); EOSINOPHILS % (AUTO) 6.1 % (0.0-4.0); HEMATOCRIT 38.9 % (36-48); HEMOGLOBIN 12.8 g/dL (12.0-16.0); LYMPHOCYTES # (AUTO) 0.6 K/uL (1.0-5.5); LYMPHOCYTES % (AUTO) 10.4 % (20.5-51.5); MEAN CORPUSCULAR HEMOGLOBIN 28 pg (27-31); MEAN CORPUSCULAR HGB CONC 33 % (32-36); MEAN CORPUSCULAR VOLUME 83 fL (79.0-98.0); MONOCYTES # (AUTO) 0.7 K/uL (0.0-1.0); NEUTROPHILS # (AUTO) 4.2 K/uL (1.8-7.7); NEUTROPHILS % (AUTO) 69.7 % (40.0-70.0); PLATELET COUNT (AUTO) 86 K/uL (130-430); RED BLOOD CELL COUNT(AUTO) 4.66 MIL/uL (4.2-6.2); RED CELL DISTRIBUTION WIDTH 22.4 % (9.0-15.0)
[2022-12-21 07:30] LABS: CALCIUM 8.7 mg/dL (8.4-11.0); CREATININE 1.83 mg/dL (0.55-1.30)
--- NOTE | 2022-12-21 07:30 | NUR ---
CLOSING Patient resting in bed, unlabored breathing on 5L Oxymizer, 92-94%. Patient took Oxymizer off at one point during night, O2 sat was 87% on room air which came up to 94% with Oxymizer. Patient ambulated with steady gait. Safety precautions in place.
[2022-12-21] MEDS: SPIRONOLACTONE 25 MG TABLET (ALDACTONE) PO SCH (08:26)
[2022-12-21] MEDS: DOXYCYCLINE HYCLATE 100 MG CAPSULE PO SCH ×2 (08:26→21:43)
[2022-12-21] MEDS: OSELTAMIVIR PHOSPHATE 75 MG CAPSULE PO SCH ×2 (08:26→21:42)
[2022-12-21] MEDS: ISOSORBIDE MONONITRATE 30 MG TAB.ER.24H PO SCH (08:27)
[2022-12-21] MEDS: CARVEDILOL 3.125 MG TABLET (COREG) PO SCH ×2 (08:28→21:43)
[2022-12-21] MEDS: MAGNESIUM OXIDE 400 MG TABLET PO SCH ×2 (08:28→21:43)
[2022-12-21] MEDS: FUROSEMIDE 40 MG/4 ML VIAL IVP SCH (08:29)
[2022-12-21] MEDS: SACUBITRIL/VALSARTAN 24 MG-26 MG 1 TABLET PO SCH ×2 (08:31→21:47)
[2022-12-21] MEDS ORDERED: FLU VACC QS2022-23(6MOS UP)/PF 0.5 ML/SYR SYRINGE I.M. PRN (09:00)
[2022-12-21] MEDS ORDERED: ALBUMIN HUMAN 25% 100 ML IV SCH (12:00)
[2022-12-21] MEDS: HYDROCORTISONE 1% 28.35 GM TOPICAL OINT. TP SCH (13:35)
--- NOTE | 2022-12-21 13:50 | NUR ---
pt sitting in bed, appears sob, paged r.t. fo2 sat was 90% on oxymiser/5li. or breathing treatment. will cont to monitor.
[2022-12-21] MEDS ORDERED: IPRATROPIUM BROM 0.5 MG/2.5 ML VIAL.NEB (ATROVENT) INH ONE (13:52)
[2022-12-21] MEDS ORDERED: ALBUTEROL SULFATE 0.083% 2.5 MG/3 ML VIAL.NEB INH ONE ×2 (13:52)
--- NOTE | 2022-12-21 17:12 | NUR ---
Assessment re: discharge plans Telephone call to [facility] to inquire about their status of searching for placement for the patient. Per Iveth, they continue to be unsuccessful in finding placement. The agency has reached out to 7 SNFs and have met barriers to getting the patient accepted. Barriers that are present include the patient's age coupled with her active drug use prior to admissions. I inquired about room and board options with Iveth, however she is unaware of any financial means the patient may have. I advised Iveth that I would meet with the patient today at bedside and inquire. Met with patient at bedside this afternoon to discuss the recent consult related to potential discharge plans. The patient is alert and oriented, and able to complete this assessment. Per patient, she resided in a two-story home with friends in [place]. At the home, she was using a walker and home O2 set to 3L. The patient was receiving hospice services with [facility], in which a director of home care hospice would come to visit her once a week. The patient states she does not have a Power of Mopper. She is unsure of her discharge location, as she does not have financial income and is aware that SNFs are not accepting. Patient advised of the conversation held with Iveth at [facility]. Per patient, she does not have monthly income. She states she receives food stamps only, which is only $250 a month and then receives an additional $95 a month. I inquired about her ability to pay for her illicit drugs prior to admission, and she indicated it was provided to her for free at the home she was staying at. I inquired about placement with her father, however she continues to verbalize not wanting to go back to his home. Per patient, she has no support system in place. Prior to leaving the room, I advised the patient i would reach back out to Iveth to inform her of this situation. F/U call made back to Iveth. I advised her of my conversation with the patient. I suggested trying [facility] in [place] and to consider room and boards by getting the patient on downing aide. Per Iveth, she will be requesting an internal team meeting within the hospice agency to discuss the patient's discharge needs. Iveth at [facility], Addendum: 12/21/22 at 1742 by Missy WATTSW Amended: Links added.
--- NOTE | 2022-12-21 17:20 | NUR ---
pt's bp low , rlext 104/39 , llext 90/40. JEFF Spencer made made aware. order to monitor pt and if bp continue to go down transfer pt to ICU.
--- NOTE | 2022-12-21 19:30 | NUR ---
OPENING NOTES Patient resting in bed - no s/s pain or distress noted. Respirations even and unlabored - head of bed elevated oxymiser 5L. IV site patent - no s/s redness, infection, or infiltration. Bed locked and in lowest position. Call light within reach.
[2022-12-22] VITALS: BP_SYST 128
[2022-12-22] MEDS: PIPERACILLIN/TAZO 4.5GM/DEX-IS 100 ML IV SCH ×3 (06:21→22:13)
[2022-12-22 06:47] LABS: BASOPHILS # (AUTO) 0.1 K/uL (0.0-0.2); EOSINOPHILS # (AUTO) 0.4 K/uL (0.0-0.4); EOSINOPHILS % (AUTO) 5.8 % (0.0-4.0); HEMATOCRIT 37.1 % (36-48); HEMOGLOBIN 12.1 g/dL (12.0-16.0); LYMPHOCYTES # (AUTO) 0.6 K/uL (1.0-5.5); LYMPHOCYTES % (AUTO) 9.3 % (20.5-51.5); MEAN CORPUSCULAR HEMOGLOBIN 28 pg (27-31); MEAN CORPUSCULAR HGB CONC 33 % (32-36); MEAN CORPUSCULAR VOLUME 85 fL (79.0-98.0); MONOCYTES # (AUTO) 0.8 K/uL (0.0-1.0); MONOCYTES % (AUTO) 11.6 % (1.7-9.3); NEUTROPHILS # (AUTO) 4.7 K/uL (1.8-7.7); NEUTROPHILS % (AUTO) 72.3 % (40.0-70.0); PLATELET COUNT (AUTO) 91 K/uL (130-430); RED BLOOD CELL COUNT(AUTO) 4.38 MIL/uL (4.2-6.2); RED CELL DISTRIBUTION WIDTH 22.8 % (9.0-15.0); WHITE BLOOD COUNT (AUTO) 6.5 K/uL (4.8-10.8)
[2022-12-22 07:01] LABS: CREATININE 2.14 mg/dL (0.55-1.30)
[2022-12-22 07:50] VITALS: BP_SYST 102
[2022-12-22] MEDS: DOXYCYCLINE HYCLATE 100 MG CAPSULE PO SCH ×2 (08:29→22:13)
[2022-12-22] MEDS: ISOSORBIDE MONONITRATE 30 MG TAB.ER.24H PO SCH (08:29)
[2022-12-22] MEDS: OSELTAMIVIR PHOSPHATE 75 MG CAPSULE PO SCH (08:29)
[2022-12-22] MEDS: SACUBITRIL/VALSARTAN 24 MG-26 MG 1 TABLET PO SCH ×2 (08:30→21:00)
[2022-12-22] MEDS: CARVEDILOL 3.125 MG TABLET (COREG) PO SCH ×2 (08:30→21:00)
[2022-12-22] MEDS: MAGNESIUM OXIDE 400 MG TABLET PO SCH ×2 (08:30→22:13)
[2022-12-22] MEDS: HYDROCORTISONE 1% 28.35 GM TOPICAL OINT. TP SCH (08:34)
[2022-12-22] MEDS ORDERED: FUROSEMIDE 100 MG in D5W 90 ML IV SCH (10:00)
--- NOTE | 2022-12-22 10:58 | NUR ---
LASIX DRALISSA LANE AT BEDSIDE. HE SAID TO GIVE THE IV DRIP LASIX AT 2 MG / HR.
[2022-12-22 11:03] VITALS: BP_SYST 136
[2022-12-22] MEDS ORDERED: DIGOXIN 0.5 MG/2 ML AMP IVP ONE (11:15)
--- NOTE | 2022-12-22 14:05 | NUR ---
In to see patient at bedside to discuss placement barriers. Patient advised of the efforts being made by [facility]. I inquired about reaching out to her father to see if he can provide some assistance with placement. The patient provided me her father's name and number, and i advised her that I would call him to inquire about assistance. Prior to leaving, I asked about changing her hospice agency if the hospice can not find placement and a more aggressive approach to finding placement is needed. The patient is in agreement to changing the hospice agency if that is what will be needed to find placement. I advised her that I will explore this idea and get back to her. I discussed the conversation with RN BETZAIDA Alvarez who indicated it would be appropriate to reach out to a different hospice if placement is still needed. I advised her that I would continue to follow up on placements and hospice.
[2022-12-22 17:59] VITALS: BP_SYST 102
--- NOTE | 2022-12-22 18:37 | NUR ---
PT CONTINUED TO BE ON LASIX DRIP, LAST BP WAS A LITTLE LOW BUT WNL. EXPLAINED TO PT THAT LASIX CAN CAUSE THE BP TO GO DOWN. ENCOURAGED PT TO CALL IF SHE IS EXPERIENCING DIZZINESS OF FAINTING. WILL ENDORSE TO NIGHT NURSE.
[2022-12-22 20:00] VITALS: BP_SYST 98
--- NOTE | 2022-12-22 20:50 | NUR ---
RECEIVED PT LYING IN BED, NO DISTRESS NOTED, DENIES PAIN. AAO X4, O2 SAT 95% ON 5L O2. IV TO RT FA SITE [place]. Марина RICHARDSON Addendum: 12/22/22 at 2052 by [employer] Araceli, BOBBY ROSALES EDEMA NOTED TO BUE AND BLE. ERYTHEMA NOTED TO RUE AND DISCOLORIZATION NOTED TO RLE. LUNG SOUNDS DIMINISHED
[2022-12-22] MEDS: ZOLPIDEM TARTRATE 5 MG TABLET PO PRN (22:12)
[2022-12-23] VITALS (15 sets, daily range): BP systolic 86–133
[2022-12-23] MEDS: PIPERACILLIN/TAZO 4.5GM/DEX-IS 100 ML IV SCH ×3 (05:36→22:05)
[2022-12-23 06:13] LABS: CALCIUM 8.8 mg/dL (8.4-11.0); CREATININE 2.48 mg/dL (0.55-1.30)
--- NOTE | 2022-12-23 07:47 | NUR ---
[facility] of Dr Palmer
--- NOTE | 2022-12-23 08:30 | NUR ---
Advised by RN BETZAIDA Alvarez that the patient was transferred to ICU, but that the advised last night that [facility] will possibly accept the patient for placement. With the permission of the patient, telephone call also made to the father, Miguel ([phone]). I left a message requesting a return phone call.
[2022-12-23] MEDS: ISOSORBIDE MONONITRATE 30 MG TAB.ER.24H PO SCH (09:00)
[2022-12-23] MEDS: CARVEDILOL 3.125 MG TABLET (COREG) PO SCH ×2 (09:00→21:00)
--- NOTE | 2022-12-23 09:20 | NUR ---
PATIENTS BP 90/52, HR 70, O2 92% ON 5L OXYMIZER. DR. IZAGUIRRE AT BEDSIDE AND AWARE, PER MD PT TO BE PLACED ON BIPAP AND TRANSFERRED TO ICU. WILL HOLD AM BP MEDICATIONS. RT NOTIFIED FOR BIPAP.
[2022-12-23] MEDS: SACUBITRIL/VALSARTAN 24 MG-26 MG 1 TABLET PO SCH ×2 (09:31→21:00)
[2022-12-23] MEDS: DOXYCYCLINE HYCLATE 100 MG CAPSULE PO SCH ×2 (09:32→21:00)
[2022-12-23] MEDS: MAGNESIUM OXIDE 400 MG TABLET PO SCH ×2 (09:35→21:00)
[2022-12-23] MEDS: HYDROCORTISONE 1% 28.35 GM TOPICAL OINT. TP SCH (09:38)
--- NOTE | 2022-12-23 09:55 | NUR ---
PATIENT TRANSFERRED TO ICU BED [address] IZAGUIRRE. TRANSFERRED VIA BED, ACCOMPANIED BY 2 RN'S AND RT. REPORT GIVEN TO BOBBY MENDOSA FOR CONTINUITY OF CARE.
--- NOTE | 2022-12-23 10:15 | NUR ---
PT TRANSFERRED TO ICU BED 1 FROM [facility] PER DR. IZAGUIRRE. REPORT RECEIVED FROM BOBBY ZAMORANO, ALL CARES ASSUMED.
--- NOTE | 2022-12-23 10:20 | NUR ---
PT PLACED ON BIPAP 08/19, 14, 30% BY RT DEBBY. PT TOLERATING WELL. PT STATES "I JUST WANT TO SEE IF I CAN SLEEP NOW". PT RESTING WITH EYES CLOSED. VSS.
[2022-12-23] MEDS ORDERED: BUMEX 1 MG/4 ML VIAL IVP ONE (11:00)
[2022-12-23] MEDS ORDERED: metOLazone 5 MG TABLET PO ONE (11:00)
[2022-12-23] MEDS ORDERED: SODIUM POLYSTYRENE SULFONATE 15 GM/60 ML UDBTL PO ONE (12:30)
--- NOTE | 2022-12-23 15:20 | NUR ---
Nutrition F/U RD reviewed pts current EMR including diet hx, physician notes, nursing notes, pertinent labs/meds/procedures, care trends and care activity. Short note d/t high workload Subjective Information RD rounded to ICU but pt was getting a dialysis port put in at the time. RD came back later with quality assurance intern and s/w pt. RD asked pt if she was vegan and she said she wasnt; RD updated in computrition. Pt denies any food allergies and denies any GI symptoms at this time. She wanted a PB&J sandwich w/ almond milk and RD got her one, d/t she missed lunch. Pt gave some food preferences; RD noted in computrition Current Diet Order/Nutrition Support Cardiac, Na2Gm, Vegan, Ensure Enlive BID x 2 days % PO intake Good avg of 83% x 8 meals Last BM 2/7 x 2 Estimated Energy Expenditure (kcals/day) 8728-7513 kcal (30-35 kcal/kg IBW d/t COPD, adult maintenance) Estimated Protein Required (g/day) 60-85g (1.2-1.7 g/kg IBW d/t COPD) Estimated Fluid Required (l/day) Refer to MD (CHF) Problem/Etiology/Signs/Symptoms * Suboptimal nutrient intakes R/T unknown etiology AEB "fair" documented intake of 69% average x 7 meals (improving) Expected Outcomes/Goals PO intake provides >85% estimated nutrient needs, nutrition-related labs trending WNL, continued skin integrity, BM q1-3 days Dietitian Recommendations * Continue Cardiac diet * If intake drops below 50%, consider liberalizing diet * Continue Ensure BID Follow up * Moderate risk: f/u in 3-5 days GS, MPH, RD
--- NOTE | 2022-12-23 15:21 | NUR ---
Dietitian Recommendations * Continue Cardiac diet * If intake drops below 50%, consider liberalizing diet * Continue Ensure BID GS, MPH, RD Please refer to Nutrition F/U for further details. Thanks!
[2022-12-23] MEDS: HYDROcodone/ACETAMIN 10-325 MG TAB PO PRN (15:54)
--- NOTE | 2022-12-23 19:15 | NUR ---
change of shift.pt.presents respiratory interventions;oximizer:rate:8l/min o2-sat%=93%.bi=pap @night.pt.presents iv access location rt.wrist.pt.presents affect:lethargic/loc;confused.i was apprised to page r/e: shyam cath not placed.v/s assessed note b/p status.call light w/in access of the pt.
--- NOTE | 2022-12-23 19:28 | NUR ---
SBAR REPORT GIVEN TO MAURI ROSALES, ALL CARES ENDORSED.
--- NOTE | 2022-12-23 20:00 | NUR ---
pt.assessed v/s assessed values note b/p status low.oximizer in place o2-sat%=94%.no c/o pain,nausea.pt.assessed for cleanliness pt.repopsitioned.call light w/in access of the pt.
--- NOTE | 2022-12-23 20:30 | NUR ---
bi-pap applied:settings;i/e;10/5,r/r:20,o2%;40%.02-sat%=96%.
[2022-12-23] MEDS ORDERED: BUMEX 1 MG/4 ML VIAL IVP SCH (21:00)
[2022-12-23] MEDS ORDERED: metOLazone 5 MG TABLET PO SCH (21:00)
--- NOTE | 2022-12-23 21:00 | NUR ---
2100p medications held.pt,presents lethargic affect.bi-pap in place.pt.somnolent.
[2022-12-23] MEDS ORDERED: NOREPINEPHRINE 4 MG/4 ML VIAL IV ONE (21:11)
[2022-12-23] MEDS: NOREPINEPHRINE BITARTRATE 4 MG in D5W 246 ML IV PRN (21:21)
--- NOTE | 2022-12-23 22:00 | NUR ---
had been paged ludwig ayala on-call.i apprised that surgeon could not place a shyam cath. to apprise of the issue. apprised that the b/p status low. ordered levophed.levophed drip administration initiated.
[2022-12-24] VITALS (36 sets, daily range): BP systolic 87–134
--- NOTE | 2022-12-24 | NUR ---
pt.assessed.levophed bag changed.pt.c/o pain rt.foot spasm.pt.assessed for cleanliness pt.repositioned.iv access intact iv fluids/drip;levophed infusing.bi-pap in place 02-wed%=96%.call light w/in access of the pt.
[2022-12-24] MEDS ORDERED: NOREPINEPHRINE 4 MG/4 ML VIAL IV ONE ×6 (00:10→06:28)
[2022-12-24] MEDS: NOREPINEPHRINE BITARTRATE 4 MG in D5W 246 ML IV PRN ×5 (00:39→06:33)
--- NOTE | 2022-12-24 01:30 | NUR ---
pt.presented nausea.zofran:4mg ivp administered.pt.requested ambien;sleep.ambien administered.to assess the efficacy of the medications per protocol.
[2022-12-24] MEDS: ONDANSETRON HCL 4 MG/2 ML VIAL IVP PRN (01:44)
[2022-12-24] MEDS: ZOLPIDEM TARTRATE 5 MG TABLET PO PRN (01:44)
--- NOTE | 2022-12-24 02:00 | NUR ---
pt.assessed.v/s assessed values note b/p status.pt.c/o pain locaton rt/chest;axillae.norco:10/325mg po/flexiril po administered. to assess the efficacy of the pain medication per pain mgx protocol.02-sat%=94%.pt.repositioned.call light place w/in access of the pt.
[2022-12-24] MEDS: HYDROcodone/ACETAMIN 10-325 MG TAB PO PRN (02:02)
[2022-12-24] MEDS: CYCLOBENZAPRINE HCL 10 MG TABLET (FLEXERIL) PO PRN (02:08)
--- NOTE | 2022-12-24 04:00 | NUR ---
pt.assessed.v/s assessed values note b/p status wnl.bi-pap in place 02-sat%=94%.per flacc pain mgx pt.absent facial grimaces/body posturing.pt.assessed for cleanliness pt.repositioned.call light places w/in access of the pt.
[2022-12-24] MEDS: PIPERACILLIN/TAZO 4.5GM/DEX-IS 100 ML IV SCH ×3 (05:17→21:24)
--- NOTE | 2022-12-24 06:00 | NUR ---
pt.assessed.v/s assessed values note b/p status.wnl.o2-sat%=96%.iv fluids/drip;levophed infusing.per flacc pain mgx pt.absent facial grimaces/body posturing.pt.assessed for cleanliness pt.repositioned.call light placed w/in access of the pt. Addendum: 12/24/22 at 0618 by Tom Hodges RN pt.weighed 2/t chf/lasix administration.
[2022-12-24 06:56] LABS: HEMATOCRIT 44.6 % (36-48); HEMOGLOBIN 14.3 g/dL (12.0-16.0); MEAN CORPUSCULAR HEMOGLOBIN 28 pg (27-31); MEAN CORPUSCULAR HGB CONC 32 % (32-36); MEAN CORPUSCULAR VOLUME 86 fL (79.0-98.0); PLATELET COUNT (AUTO) 175 K/uL (130-430); RED BLOOD CELL COUNT(AUTO) 5.19 MIL/uL (4.2-6.2); RED CELL DISTRIBUTION WIDTH 22.4 % (9.0-15.0); WHITE BLOOD COUNT (AUTO) 11.8 K/uL (4.8-10.8)
[2022-12-24 07:18] LABS: ALBUMIN 2.9 g/dL (3.4-4.8); CALCIUM 9.1 mg/dL (8.4-11.0); TOTAL BILIRUBIN 5.6 mg/dL (0.0-1.0)
[2022-12-24] MEDS ORDERED: NOREPINEPHRINE BITARTRATE 8 MG in D5W 246 ML IV PRN (07:45)
[2022-12-24] MEDS ORDERED: LIDOCAINE 1% 10 MG/ML, 20 ML MDV INJ ONE (09:15)
--- NOTE | 2022-12-24 10:32 | NUR ---
SPOKE WITH LIZ RELAYING MESSAGE TO DR. DAWKINS OF [facility].
[2022-12-24] MEDS: DOXYCYCLINE HYCLATE 100 MG CAPSULE PO SCH ×2 (11:17→21:23)
[2022-12-24] MEDS: MAGNESIUM OXIDE 400 MG TABLET PO SCH ×2 (11:17→21:23)
[2022-12-24] MEDS: HYDROCORTISONE 1% 28.35 GM TOPICAL OINT. TP SCH (11:17)
[2022-12-24] MEDS: SACUBITRIL/VALSARTAN 24 MG-26 MG 1 TABLET PO SCH ×2 (11:20→21:24)
[2022-12-24] MEDS: ISOSORBIDE MONONITRATE 30 MG TAB.ER.24H PO SCH (11:20)
[2022-12-24] MEDS: CARVEDILOL 3.125 MG TABLET (COREG) PO SCH ×2 (11:23→21:23)
[2022-12-24 11:48] LABS: BAND % (MANUAL) 2 % (0-6); BASOPHILS # (AUTO) 0.1 K/uL (0.0-0.2); BASOPHILS % (AUTO) 0.8 % (0.0-2.0); EOSINOPHILS # (AUTO) 0.1 K/uL (0.0-0.4); EOSINOPHILS % (AUTO) 1.2 % (0.0-4.0); LYMPHOCYTES # (AUTO) 1.1 K/uL (1.0-5.5); LYMPHOCYTES % (AUTO) 9.6 % (20.5-51.5); MONOCYTES # (AUTO) 1.3 K/uL (0.0-1.0); MONOCYTES % (AUTO) 11.4 % (1.7-9.3); NEUTROPHILS # (AUTO) 9.1 K/uL (1.8-7.7)
[2022-12-24 11:49] LABS: EOSINOPHILS % (MANUAL) 3 % (0-7); LYMPHOCYTES % (MANUAL) 9 % (20-46); MONOCYTES % (MANUAL) 2 % (0-11)
[2022-12-24 11:50] LABS: BASOPHILS % (MANUAL) 3 % (0-2)
[2022-12-24] MEDS: NOREPINEPHRINE BITARTRATE 16 MG in NS 234 ML IV PRN (11:52)
[2022-12-24] MEDS ORDERED: HEPARIN SODIUM,PORCINE 5,000 UNITS/ML VIAL MC ONE (16:00)
[2022-12-24] MEDS: NOREPINEPHRINE BITARTRATE 32 MG in NS 218 ML IV PRN (18:29)
[2022-12-25] VITALS (25 sets, daily range): BP systolic 70–162
[2022-12-25] MEDS: NOREPINEPHRINE BITARTRATE 32 MG in NS 218 ML IV PRN ×2 (01:52→20:25)
[2022-12-25] MEDS: PIPERACILLIN/TAZO 4.5GM/DEX-IS 100 ML IV SCH (05:25)
[2022-12-25 06:38] LABS: BASOPHILS # (AUTO) 0.1 K/uL (0.0-0.2); BASOPHILS % (AUTO) 1.3 % (0.0-2.0); EOSINOPHILS # (AUTO) 0.1 K/uL (0.0-0.4); HEMOGLOBIN 13.5 g/dL (12.0-16.0); LYMPHOCYTES % (AUTO) 9.3 % (20.5-51.5); MEAN CORPUSCULAR HEMOGLOBIN 28 pg (27-31); MEAN CORPUSCULAR HGB CONC 33 % (32-36); MONOCYTES # (AUTO) 1.1 K/uL (0.0-1.0); MONOCYTES % (AUTO) 10.1 % (1.7-9.3); NEUTROPHILS # (AUTO) 8.3 K/uL (1.8-7.7); NEUTROPHILS % (AUTO) 78.3 % (40.0-70.0); PLATELET COUNT (AUTO) 164 K/uL (130-430); RED BLOOD CELL COUNT(AUTO) 4.86 MIL/uL (4.2-6.2); RED CELL DISTRIBUTION WIDTH 22.3 % (9.0-15.0); WHITE BLOOD COUNT (AUTO) 10.6 K/uL (4.8-10.8)
[2022-12-25 06:54] LABS: CREATININE 2.28 mg/dL (0.55-1.30)
[2022-12-25 07:31] LABS: MEAN CORPUSCULAR VOLUME 84 fL (79.0-98.0)
--- NOTE | 2022-12-25 08:55 | NUR ---
PT TRIED TO GET OOB, TOOK OFF EUIP, VSS DECREASED, REORIENT, EDUCATED PT NOT TO GET OOB, USE CALL LIGHT, PLACED PT BACK ON O2, OCCUPATIONAL MEDICINE PHYSICIAN, PT STATED SHE JUST WANTED TO SIT ON THE SIDE OF THE BED.
[2022-12-25] MEDS: ISOSORBIDE MONONITRATE 30 MG TAB.ER.24H PO SCH (09:00)
[2022-12-25] MEDS: SACUBITRIL/VALSARTAN 24 MG-26 MG 1 TABLET PO SCH ×2 (09:00→21:00)
[2022-12-25] MEDS: CARVEDILOL 3.125 MG TABLET (COREG) PO SCH ×2 (09:00→21:00)
[2022-12-25] MEDS: NOREPINEPHRINE BITARTRATE 16 MG in NS 234 ML IV PRN (10:01)
[2022-12-25] MEDS: HYDROCORTISONE 1% 28.35 GM TOPICAL OINT. TP SCH (10:17)
[2022-12-25] MEDS: DOXYCYCLINE HYCLATE 100 MG CAPSULE PO SCH ×2 (10:17→21:30)
[2022-12-25] MEDS: MAGNESIUM OXIDE 400 MG TABLET PO SCH ×2 (10:17→21:25)
[2022-12-25] MEDS: ACETAMINOPHEN 325 MG TABLET PO PRN (12:52)
[2022-12-25] MEDS: PIPERACILLIN/TAZO 2.25G/DEX-IS 50 ML IV SCH ×2 (14:00→21:30)
--- NOTE | 2022-12-25 19:16 | NUR ---
charge nurse informed night nurse to notify dr thrasher regarding US results for mid line
[2022-12-25] MEDS: HEPARIN SODIUM,PORCINE 5,000 UNITS/ML VIAL SUBCUT SCH (21:29)
[2022-12-26] VITALS (36 sets, daily range): BP systolic 76–136
[2022-12-26] MEDS: NOREPINEPHRINE BITARTRATE 32 MG in NS 218 ML IV PRN ×4 (01:13→22:44)
[2022-12-26] MEDS: PIPERACILLIN/TAZO 2.25G/DEX-IS 50 ML IV SCH ×3 (05:56→21:06)
[2022-12-26] MEDS: HEPARIN SODIUM,PORCINE 5,000 UNITS/ML VIAL SUBCUT SCH ×3 (06:00→21:08)
[2022-12-26 07:21] LABS: BASOPHILS # (AUTO) 0.2 K/uL (0.0-0.2); BASOPHILS % (AUTO) 1.5 % (0.0-2.0); EOSINOPHILS # (AUTO) 0.1 K/uL (0.0-0.4); EOSINOPHILS % (AUTO) 1.1 % (0.0-4.0); HEMATOCRIT 43.9 % (36-48); HEMOGLOBIN 14.3 g/dL (12.0-16.0); LYMPHOCYTES # (AUTO) 1.4 K/uL (1.0-5.5); MEAN CORPUSCULAR HEMOGLOBIN 28 pg (27-31); MEAN CORPUSCULAR HGB CONC 33 % (32-36); MEAN CORPUSCULAR VOLUME 85 fL (79.0-98.0); MONOCYTES # (AUTO) 1.4 K/uL (0.0-1.0); MONOCYTES % (AUTO) 12.3 % (1.7-9.3); NEUTROPHILS # (AUTO) 8.4 K/uL (1.8-7.7); NEUTROPHILS % (AUTO) 73.1 % (40.0-70.0); PLATELET COUNT (AUTO) 166 K/uL (130-430); RED BLOOD CELL COUNT(AUTO) 5.14 MIL/uL (4.2-6.2); RED CELL DISTRIBUTION WIDTH 22.2 % (9.0-15.0); WHITE BLOOD COUNT (AUTO) 11.4 K/uL (4.8-10.8)
[2022-12-26 07:35] LABS: CALCIUM 9.5 mg/dL (8.4-11.0); CREATININE 1.58 mg/dL (0.55-1.30)
[2022-12-26] MEDS: DOXYCYCLINE HYCLATE 100 MG CAPSULE PO SCH ×2 (08:12→21:07)
[2022-12-26] MEDS: HYDROCORTISONE 1% 28.35 GM TOPICAL OINT. TP SCH (08:12)
[2022-12-26] MEDS: MAGNESIUM OXIDE 400 MG TABLET PO SCH ×2 (08:12→21:07)
[2022-12-26] MEDS: ISOSORBIDE MONONITRATE 30 MG TAB.ER.24H PO SCH (08:13)
[2022-12-26] MEDS: SACUBITRIL/VALSARTAN 24 MG-26 MG 1 TABLET PO SCH ×3 (08:13→21:07)
[2022-12-26] MEDS: CARVEDILOL 3.125 MG TABLET (COREG) PO SCH ×3 (08:14→21:07)
--- NOTE | 2022-12-26 11:55 | NUR ---
rt notes 1155 on bp 10/5 .70 during dialysis. rn aware, will monitor, sat 93%. Addendum: 12/26/22 at 1158 by Heather Doe RT Amended: Links added.
[2022-12-26] MEDS: TEMAZEPAM 15 MG CAPSULE PO PRN ×2 (12:07→21:09)
--- NOTE | 2022-12-26 15:27 | NUR ---
RT NOTES 1430 PT TAKEN OFF BIPAP AND PLACED ON 30L 80% FIO2 HI FLOW. SAT 95%, PT TOLERATING WELL. Addendum: 12/26/22 at 1529 by Heather Doe RT Amended: Links added.
--- NOTE | 2022-12-26 19:00 | NUR ---
Opening notes Received report from endorsing morning shift RN for continuity of care. Patient is lying in bed sleeping with IVF NS @ TKO and levophed @ 0.8 mcg/kg/min. Patient's vital signs blood pressure 105/67, heart rate 90, respirations 22, and SPO2 95% on hi-flow NC @ 30L FIO2 80%. Bed is locked and in lowest position, call light button within reach, fall and safety precautions is in place.
[2022-12-27] VITALS (31 sets, daily range): BP systolic 90–136
[2022-12-27] MEDS: HEPARIN SODIUM,PORCINE 5,000 UNITS/ML VIAL SUBCUT SCH ×3 (05:37→21:50)
[2022-12-27] MEDS: PIPERACILLIN/TAZO 2.25G/DEX-IS 50 ML IV SCH ×3 (05:38→21:49)
[2022-12-27] MEDS: NOREPINEPHRINE BITARTRATE 32 MG in NS 218 ML IV PRN ×3 (06:16→23:20)
[2022-12-27 06:40] LABS: BASOPHILS # (AUTO) 0.1 K/uL (0.0-0.2); BASOPHILS % (AUTO) 1.1 % (0.0-2.0); EOSINOPHILS # (AUTO) 0.4 K/uL (0.0-0.4); EOSINOPHILS % (AUTO) 3.3 % (0.0-4.0); HEMATOCRIT 39.1 % (36-48); HEMOGLOBIN 12.9 g/dL (12.0-16.0); LYMPHOCYTES # (AUTO) 1.1 K/uL (1.0-5.5); LYMPHOCYTES % (AUTO) 10.4 % (20.5-51.5); MEAN CORPUSCULAR HEMOGLOBIN 28 pg (27-31); MEAN CORPUSCULAR HGB CONC 33 % (32-36); MEAN CORPUSCULAR VOLUME 85 fL (79.0-98.0); MONOCYTES # (AUTO) 1.2 K/uL (0.0-1.0); MONOCYTES % (AUTO) 10.7 % (1.7-9.3); NEUTROPHILS # (AUTO) 8.1 K/uL (1.8-7.7); NEUTROPHILS % (AUTO) 74.5 % (40.0-70.0); PLATELET COUNT (AUTO) 123 K/uL (130-430); RED BLOOD CELL COUNT(AUTO) 4.63 MIL/uL (4.2-6.2); RED CELL DISTRIBUTION WIDTH 22.9 % (9.0-15.0); WHITE BLOOD COUNT (AUTO) 10.8 K/uL (4.8-10.8)
[2022-12-27 07:03] LABS: CALCIUM 9.3 mg/dL (8.4-11.0); CREATININE 1.39 mg/dL (0.55-1.30)
[2022-12-27] MEDS: ISOSORBIDE MONONITRATE 30 MG TAB.ER.24H PO SCH (08:57)
[2022-12-27] MEDS: SACUBITRIL/VALSARTAN 24 MG-26 MG 1 TABLET PO SCH ×2 (08:57→20:58)
[2022-12-27] MEDS: CARVEDILOL 3.125 MG TABLET (COREG) PO SCH ×2 (08:57→20:57)
[2022-12-27] MEDS: MAGNESIUM OXIDE 400 MG TABLET PO SCH ×2 (08:57→20:58)
[2022-12-27] MEDS: HYDROCORTISONE 1% 28.35 GM TOPICAL OINT. TP SCH (08:58)
[2022-12-27] MEDS: DOXYCYCLINE HYCLATE 100 MG CAPSULE PO SCH ×2 (08:58→20:58)
[2022-12-27] MEDS: TEMAZEPAM 15 MG CAPSULE PO PRN ×2 (11:53→21:43)
--- NOTE | 2022-12-27 15:00 | NUR ---
RT NOTES 1030 PT PLACED ON BIPAP 10/5 R 14 70% FIO2, PT REQUESTED TO BE ON -PT HAVING ANXIETY AND BIT DESATURATING TO 86%. 1405 PT STILL ON BIPAP, PT RESTING COMFORTABLY ON BIPAP. 1458 PT BACK ON VAPOTHERM 30L/ 80% FIO2. PT AWAKE, ASKED TO EAT LUNCH. PT SATURATING 97% NOW. WILL CONT TO MONITOR PT.
[2022-12-27] MEDS: CYCLOBENZAPRINE HCL 10 MG TABLET (FLEXERIL) PO PRN (21:42)
[2022-12-28] VITALS (23 sets, daily range): BP systolic 79–168
--- NOTE | 2022-12-28 00:55 | NUR ---
Patient awake on & off is verbally Responsive on High Flow 02 @ 30 ML Minute 80 % Fi02 encourage position change off loading with pillows no SOB noted with exertion tolerated / .
--- NOTE | 2022-12-28 03:58 | NUR ---
hourly Rounding patient Resting verbally Responsive on High Flow 80 % Fi02 02 SAT 96 %
[2022-12-28] MEDS: PIPERACILLIN/TAZO 2.25G/DEX-IS 50 ML IV SCH ×3 (06:39→22:55)
[2022-12-28] MEDS: NOREPINEPHRINE BITARTRATE 32 MG in NS 218 ML IV PRN (06:43)
[2022-12-28] MEDS: HEPARIN SODIUM,PORCINE 5,000 UNITS/ML VIAL SUBCUT SCH ×3 (06:44→22:52)
[2022-12-28 07:48] LABS: BASOPHILS # (AUTO) 0.1 K/uL (0.0-0.2); BASOPHILS % (AUTO) 0.9 % (0.0-2.0); EOSINOPHILS # (AUTO) 0.6 K/uL (0.0-0.4); EOSINOPHILS % (AUTO) 6.5 % (0.0-4.0); HEMATOCRIT 39.2 % (36-48); HEMOGLOBIN 12.9 g/dL (12.0-16.0); LYMPHOCYTES # (AUTO) 1.3 K/uL (1.0-5.5); LYMPHOCYTES % (AUTO) 12.8 % (20.5-51.5); MEAN CORPUSCULAR HEMOGLOBIN 28 pg (27-31); MEAN CORPUSCULAR HGB CONC 33 % (32-36); MEAN CORPUSCULAR VOLUME 86 fL (79.0-98.0); MONOCYTES # (AUTO) 0.9 K/uL (0.0-1.0); MONOCYTES % (AUTO) 8.6 % (1.7-9.3); NEUTROPHILS % (AUTO) 71.2 % (40.0-70.0); PLATELET COUNT (AUTO) 111 K/uL (130-430); RED BLOOD CELL COUNT(AUTO) 4.57 MIL/uL (4.2-6.2); RED CELL DISTRIBUTION WIDTH 22.9 % (9.0-15.0); WHITE BLOOD COUNT (AUTO) 9.9 K/uL (4.8-10.8)
--- NOTE | 2022-12-28 08:00 | NUR ---
DR VARGAS AT BEDSIDE
--- NOTE | 2022-12-28 08:14 | NUR ---
PT SITTING UP IN BED EATING IN NO ACUTE DISTRESS NOTED AT THIS TIME, MORNING B/P MEDS HELD DUE TO LOW B/P 77/ 40
[2022-12-28] MEDS: SACUBITRIL/VALSARTAN 24 MG-26 MG 1 TABLET PO SCH ×2 (08:18→22:55)
[2022-12-28] MEDS: CARVEDILOL 3.125 MG TABLET (COREG) PO SCH ×2 (08:18→21:00)
[2022-12-28] MEDS: HYDROCORTISONE 1% 28.35 GM TOPICAL OINT. TP SCH (08:19)
[2022-12-28] MEDS: ISOSORBIDE MONONITRATE 30 MG TAB.ER.24H PO SCH (08:19)
[2022-12-28] MEDS: MAGNESIUM OXIDE 400 MG TABLET PO SCH ×2 (08:20→21:00)
[2022-12-28] MEDS: DOXYCYCLINE HYCLATE 100 MG CAPSULE PO SCH ×2 (08:20→22:49)
[2022-12-28 08:25] LABS: CREATININE 1.34 mg/dL (0.55-1.30)
[2022-12-28] MEDS ORDERED: DIGOXIN 0.5 MG/2 ML AMP IVP ONE (14:00)
--- NOTE | 2022-12-28 14:45 | NUR ---
Wound Evaluation: Late note for 12/28/2022 at 1445 secondary to patient care. Wound Consult ordered for Low Jonathon Score. Patient evaluated for a low Jonathon score of 14. Patient was awake, alert, oriented and received in a Christopher Bed. Patient needs to be turned in bed. Skin assessment: 1. Left Inguinal area: IAD with mild erythema. 2. Right Inguinal area: IAD with mild erythema. Recommend: Cleanse involved areas with mild soap and water. Gently pat dry. Cut Interdry Ag cloth to size and place in between inguinal fold areas. Perform site care twice daily. Change Interdry AG cloth every 5 days and as needed for cloth soiling. 3. Left Lower Extremity: Dark discolored skin, present on admission. 4. Right Lower Extremity: Dark discolored skin, present on admission. Recommend: No dressings needed. Continue to monitor extremities qshift. Also Recommend: Encourage and assist patient with repositioning every 2 hours with pillow support. Elevate, off-load and float bilateral heels with one pillow lengthwise each extremity at all times. Offload pressure areas with pillows for pressure re-distribution. Perform skin care and monitor skin integrity Q shift. Use moisture barrier cream on moisture susceptible areas QID and PRN for soiling. Place patient on a low air-loss mattress.
[2022-12-28] MEDS: FUROSEMIDE 20 MG/2 ML VIAL IVP SCH (21:00)
[2022-12-28] MEDS: TEMAZEPAM 15 MG CAPSULE PO PRN (22:49)
[2022-12-29] VITALS (22 sets, daily range): BP systolic 99–150
--- NOTE | 2022-12-29 05:46 | NUR ---
End of Shift Note: No acute overnight issues or events. GCS 15, AOx3, follows commands, no neuro deficits observed in pt. The noc scheduled Coreg was held for the soft borderline SBP 132 and with pt receiving levophed gtt. Right upper arm remains very edematous +3, bruising noted on the left side of neck from the attempted Left IJ HD vas cath. Levophed was able to get titrated down to 0.43mcg/kg/min and it is currently maintaining SBP >110s-120s with map >70. Will continue to titrate up and down as pt's hemodynamic tolerates. Otherwise, pt rested and slept throughout the noc shift on Bipap 50-70s% FiO2. Oral care q4, Q2 reposition in bed and the dialysis line dressing change were performed with a new hub changed to the pigtail IV port. Will continue to monitor.
[2022-12-29] MEDS: PIPERACILLIN/TAZO 2.25G/DEX-IS 50 ML IV SCH ×3 (06:48→20:48)
[2022-12-29] MEDS: HEPARIN SODIUM,PORCINE 5,000 UNITS/ML VIAL SUBCUT SCH ×3 (06:50→20:43)
[2022-12-29 07:20] LABS: ALBUMIN 2.6 g/dL (3.4-4.8); CALCIUM 9.2 mg/dL (8.4-11.0); CREATININE 0.93 mg/dL (0.55-1.30); TOTAL BILIRUBIN 4.4 mg/dL (0.0-1.0)
--- NOTE | 2022-12-29 07:32 | NUR ---
0700: Levo down to 0.4mcg/kg/min. MD at bedside, assessing pt. Per MD, map goal >65. 0715: Reports given to the day shift for continuity of care.
[2022-12-29 08:49] LABS: BASOPHILS % (AUTO) 0.1 % (0.0-2.0); EOSINOPHILS # (AUTO) 0.6 K/uL (0.0-0.4); EOSINOPHILS % (AUTO) 7.3 % (0.0-4.0); HEMATOCRIT 41.3 % (36-48); HEMOGLOBIN 13.2 g/dL (12.0-16.0); LYMPHOCYTES # (AUTO) 0.8 K/uL (1.0-5.5); LYMPHOCYTES % (AUTO) 9.9 % (20.5-51.5); MEAN CORPUSCULAR HEMOGLOBIN 28 pg (27-31); MEAN CORPUSCULAR HGB CONC 32 % (32-36); MEAN CORPUSCULAR VOLUME 87 fL (79.0-98.0); MONOCYTES # (AUTO) 0.6 K/uL (0.0-1.0); MONOCYTES % (AUTO) 7.3 % (1.7-9.3); NEUTROPHILS # (AUTO) 6.2 K/uL (1.8-7.7); NEUTROPHILS % (AUTO) 75.4 % (40.0-70.0); PLATELET COUNT (AUTO) 117 K/uL (130-430); RED BLOOD CELL COUNT(AUTO) 4.75 MIL/uL (4.2-6.2); RED CELL DISTRIBUTION WIDTH 23.1 % (9.0-15.0); WHITE BLOOD COUNT (AUTO) 8.2 K/uL (4.8-10.8)
[2022-12-29] MEDS: ISOSORBIDE MONONITRATE 30 MG TAB.ER.24H PO SCH (09:00)
[2022-12-29] MEDS: CARVEDILOL 3.125 MG TABLET (COREG) PO SCH ×2 (09:00→21:00)
[2022-12-29] MEDS: SACUBITRIL/VALSARTAN 24 MG-26 MG 1 TABLET PO SCH ×2 (09:00→21:00)
[2022-12-29] MEDS: HYDROCORTISONE 1% 28.35 GM TOPICAL OINT. TP SCH (09:08)
[2022-12-29] MEDS: DOXYCYCLINE HYCLATE 100 MG CAPSULE PO SCH ×2 (09:10→20:37)
[2022-12-29] MEDS: MAGNESIUM OXIDE 400 MG TABLET PO SCH ×2 (09:10→20:37)
[2022-12-29] MEDS: FUROSEMIDE 20 MG/2 ML VIAL IVP SCH (09:20)
[2022-12-29 13:06] LABS: HEPATITIS A AB, IgM Negative (Negative); HEPATITIS B CORE AB, IgM Negative (Negative); HEPATITIS B SURFACE AG Negative (Negative)
--- NOTE | 2022-12-29 15:59 | NUR ---
SKYLER CATH REMOVED AT THIS TIME BY DIALYSIS NURSE
[2022-12-29] MEDS: ACETAMINOPHEN 325 MG TABLET PO PRN (16:27)
[2022-12-29] MEDS ORDERED: FUROSEMIDE 40 MG/4 ML VIAL IVP ONE (17:00)
--- NOTE | 2022-12-29 18:00 | NUR ---
AMIODARONE STOPPED AT 1800 Addendum: 12/29/22 at 1908 by Faywood Registry, BOBBY RN ERROR
[2022-12-29] MEDS: FUROSEMIDE 40 MG/4 ML VIAL IVP SCH (20:12)
[2022-12-29] MEDS: TEMAZEPAM 15 MG CAPSULE PO PRN (20:38)
[2022-12-30] VITALS (24 sets, daily range): BP systolic 95–150
--- NOTE | 2022-12-30 04:15 | NUR ---
End of Shift Note: No acute overnight issues or events. GCS 15, AOx3, follows commands, no neuro deficits observed in pt. Walks up to the bedside toilet in the room with standby assist x1. The noc scheduled Coreg was held for the soft borderline BP and with pt receiving levophed gtt. Bilateral upper arms remain very edematous, with right arm +2 and left arm +3. Levophed was able to get titrated down to 0.26mcg/kg/min and it is currently maintaining map >70s. Map goal >65. Will continue to titrate up and down as pt's hemodynamic tolerates. Pt tolerated HFNC 60%, 30L all night without transitioning to Bipap. Oral care q4, Q2 repositions in bed were performed. Will continue to monitor.
[2022-12-30] MEDS: NOREPINEPHRINE BITARTRATE 32 MG in NS 218 ML IV PRN (06:05)
[2022-12-30] MEDS: HEPARIN SODIUM,PORCINE 5,000 UNITS/ML VIAL SUBCUT SCH ×3 (06:06→21:18)
[2022-12-30] MEDS: PIPERACILLIN/TAZO 2.25G/DEX-IS 50 ML IV SCH ×3 (06:08→21:17)
--- NOTE | 2022-12-30 06:32 | NUR ---
Levophed currently infusing at 0.23mcg/kg/min and map 94 at the moment. Pt is resting in bed with call lights within reach. Will continue to monitor. 0700: Reports given to the day shift for continuity of care.
[2022-12-30 06:37] LABS: BASOPHILS # (AUTO) 0.2 K/uL (0.0-0.2); BASOPHILS % (AUTO) 2.2 % (0.0-2.0); EOSINOPHILS # (AUTO) 0.5 K/uL (0.0-0.4); EOSINOPHILS % (AUTO) 7.7 % (0.0-4.0); HEMATOCRIT 38.3 % (36-48); HEMOGLOBIN 12.4 g/dL (12.0-16.0); LYMPHOCYTES # (AUTO) 0.7 K/uL (1.0-5.5); LYMPHOCYTES % (AUTO) 10.1 % (20.5-51.5); MEAN CORPUSCULAR HEMOGLOBIN 28 pg (27-31); MEAN CORPUSCULAR HGB CONC 32 % (32-36); MEAN CORPUSCULAR VOLUME 87 fL (79.0-98.0); MONOCYTES # (AUTO) 0.7 K/uL (0.0-1.0); MONOCYTES % (AUTO) 9.4 % (1.7-9.3); NEUTROPHILS % (AUTO) 70.6 % (40.0-70.0); PLATELET COUNT (AUTO) 110 K/uL (130-430); RED BLOOD CELL COUNT(AUTO) 4.39 MIL/uL (4.2-6.2); RED CELL DISTRIBUTION WIDTH 23.3 % (9.0-15.0); WHITE BLOOD COUNT (AUTO) 7.1 K/uL (4.8-10.8)
--- NOTE | 2022-12-30 07:50 | NUR ---
AM ASSESSMENT PT ASKED FOR HELP IN GETTING TO THE BATHROOM, SHE UNDONE HER O2 AND BP CUFF, IV LINES FLUSHED BEFORE TAKING HER TO THE BATHROOM. PT GIVEN WET WIPES AND MADE HER BED , DISPOSABLE PADS LEFT TO BED. SHE CAME BACK TO BED. DRESSING TO RIGHT FEMORAL AREA SOAKED, DRESSING REMOVED CAREFULLY. SITE LEAKING, CLEAR DRAINAGE, COVERED WITH GAUZE AND TAPED WELL TO MAKE THE SITE DRY.
[2022-12-30 08:46] LABS: CALCIUM 9.3 mg/dL (8.4-11.0); CREATININE 1.07 mg/dL (0.55-1.30)
[2022-12-30] MEDS: CARVEDILOL 3.125 MG TABLET (COREG) PO SCH ×2 (09:00→21:00)
[2022-12-30] MEDS: SACUBITRIL/VALSARTAN 24 MG-26 MG 1 TABLET PO SCH ×2 (09:00→21:00)
[2022-12-30] MEDS: ISOSORBIDE MONONITRATE 30 MG TAB.ER.24H PO SCH (09:00)
[2022-12-30] MEDS: MAGNESIUM OXIDE 400 MG TABLET PO SCH ×2 (09:25→21:14)
[2022-12-30] MEDS: FUROSEMIDE 40 MG/4 ML VIAL IVP SCH ×2 (09:26→21:13)
[2022-12-30] MEDS: HYDROCORTISONE 1% 28.35 GM TOPICAL OINT. TP SCH (09:27)
--- NOTE | 2022-12-30 11:45 | NUR ---
CRANE ASSEMBLER' DR RICHARDSON AT BEDSIDE EXAMINING THE PATIENT. AWARE OF LEAKING THRU RIGHT FEMORAL. NEW ORDERS RECEIVED.
--- NOTE | 2022-12-30 11:46 | NUR ---
Nutrition F/U RD reviewed pts current EMR including diet hx, physician notes, nursing notes, pertinent labs/meds/procedures, care trends and care activity. Short note d/t high workload Subjective Information RD rounded to ICU meeting and s/w RN about pt condition. She attests to pt eating very well and having a BM yesterday and today. RN reports that pt ate 100% at breakfast. Pt is on high-flow oxygen and levo @0.26, which is why she cannot be downgraded. RN attested to her renal functions getting better and pt may not need dialysis for the time being. Pt is likely meeting nutritional needs at this time. Current Diet Order/Nutrition Support Cardiac, Na2Gm, Vegan, Ensure Enlive BID x 9 days % PO intake Good avg of 88% x 8 meals Last BM 12/30 x 1 per RN report Estimated Energy Expenditure (kcals/day) 8855-5716 kcal (30-35 kcal/kg IBW d/t COPD, adult maintenance) Estimated Protein Required (g/day) 60-85g (1.2-1.7 g/kg IBW d/t COPD) Estimated Fluid Required (l/day) Refer to MD (CHF) Problem/Etiology/Signs/Symptoms * Suboptimal nutrient intakes R/T unknown etiology AEB "fair" documented intake of 69% average x 7 meals (resolved) Expected Outcomes/Goals PO intake provides >85% estimated nutrient needs, nutrition-related labs trending WNL, continued skin integrity, BM q1-3 days Dietitian Recommendations * Continue Cardiac diet * Continue Ensure BID Follow up * Low risk: f/u in 7 days GS, MPH, RD
--- NOTE | 2022-12-30 11:49 | NUR ---
Dietitian Recommendations * Continue Cardiac diet * Continue Ensure BID GS, MPH, RD Please refer to Nutrition F/U for further details. Thanks!
[2022-12-30] MEDS: CYCLOBENZAPRINE HCL 10 MG TABLET (FLEXERIL) PO PRN (17:12)
--- NOTE | 2022-12-30 17:12 | NUR ---
PAIN PT COMPLAINED OF DISCOMFORT TO LEFT SIDE OF HER NECK, AND RIGHT GROIN, OFFERED HER REGULAR TYLENOL, PT REQUESTING FOR VICODIN. EDUCATION GIVEN ON HER MEDS, FLEXERIL PRN FOR SPASM. SHE TOOK 1 TABLET FLEXERIL THEN.
[2022-12-30] MEDS: TEMAZEPAM 15 MG CAPSULE PO PRN (21:14)
[2022-12-30] MEDS: BACITRACIN ZINC 15 GM TOPICAL OINTMENT TP SCH (21:16)
[2022-12-31] VITALS (23 sets, daily range): BP systolic 84–136
--- NOTE | 2022-12-31 04:32 | NUR ---
End of Shift Note: No acute events or issues overnight. No changes in pt's condition from the previous shift. GCS 15, AOx4, walks up to the toilet with standby assist x1. Levophed has been titrated down throughout the noc shift and it is currently infusing at 0.19mcg/kg/min with sustaining map >80s. Will continue to titrate down as pt's hemodynamic tolerates. Otherwise, pt is asleep in bed at the moment with call lights within reach.
[2022-12-31] MEDS: PIPERACILLIN/TAZO 2.25G/DEX-IS 50 ML IV SCH ×3 (05:17→21:46)
[2022-12-31] MEDS: HEPARIN SODIUM,PORCINE 5,000 UNITS/ML VIAL SUBCUT SCH ×3 (05:18→21:48)
--- NOTE | 2022-12-31 06:11 | NUR ---
Levophed currently infusing at 0.13mcg/kg/min and map 80 at the moment. Pt is resting in bed with call lights within reach. Will continue to monitor. 0700: Reports given to the day shift for continuity of care.
--- NOTE | 2022-12-31 06:55 | NUR ---
RT NOTES 0655 Titrated Vapotherm flow to 20L and 50% FIO2, Pt saturating 97%. no distress noted. will cont to monitor pt.
[2022-12-31 07:09] LABS: HEMATOCRIT 35.4 % (36-48); HEMOGLOBIN 11.8 g/dL (12.0-16.0); MEAN CORPUSCULAR HEMOGLOBIN 28 pg (27-31); MEAN CORPUSCULAR HGB CONC 33 % (32-36); MEAN CORPUSCULAR VOLUME 84 fL (79.0-98.0); PLATELET COUNT (AUTO) 99 K/uL (130-430); RED CELL DISTRIBUTION WIDTH 23.7 % (9.0-15.0); WHITE BLOOD COUNT (AUTO) 4.8 K/uL (4.8-10.8)
[2022-12-31 07:29] LABS: CALCIUM 9.3 mg/dL (8.4-11.0); CREATININE 1.02 mg/dL (0.55-1.30)
[2022-12-31] MEDS: FUROSEMIDE 40 MG/4 ML VIAL IVP SCH ×2 (10:34→21:34)
[2022-12-31] MEDS: ISOSORBIDE MONONITRATE 30 MG TAB.ER.24H PO SCH (10:35)
[2022-12-31] MEDS: SACUBITRIL/VALSARTAN 24 MG-26 MG 1 TABLET PO SCH ×2 (10:35→21:37)
[2022-12-31] MEDS: CARVEDILOL 3.125 MG TABLET (COREG) PO SCH ×2 (10:37→21:35)
[2022-12-31] MEDS: DOXYCYCLINE HYCLATE 100 MG CAPSULE PO SCH ×2 (10:42→21:39)
[2022-12-31] MEDS: MAGNESIUM OXIDE 400 MG TABLET PO SCH ×2 (10:43→21:37)
[2022-12-31] MEDS: BACITRACIN ZINC 15 GM TOPICAL OINTMENT TP SCH ×2 (10:44→21:40)
[2022-12-31] MEDS: HYDROCORTISONE 1% 28.35 GM TOPICAL OINT. TP SCH (10:45)
--- NOTE | 2022-12-31 11:20 | NUR ---
rt notes 1120 Per RN MD Eugene Brooks ordered pt to be titrated to 6L oxymizer. Placed pt on oxymizer, pt saturating 97%. coached pt to do deep breathe through nose. Vapotherm on stby. no resp distress noted. will cont to monitor pt.
[2022-12-31 12:02] LABS: LYMPHOCYTES % (MANUAL) 7 % (20-46); MONOCYTES % (MANUAL) 11 % (0-11)
[2022-12-31 12:03] LABS: BASOPHILS % (MANUAL) 0 % (0-2); EOSINOPHILS % (MANUAL) 4 % (0-7)
[2022-12-31] MEDS: MIDODRINE HCL 5 MG TABLET (PROAMATINE) PO SCH ×2 (13:40→21:38)
[2022-12-31] MEDS: CYCLOBENZAPRINE HCL 10 MG TABLET (FLEXERIL) PO PRN (14:16)
--- NOTE | 2022-12-31 18:38 | NUR ---
END OF SHIFT SUMMARY: Patient has been doing well throughout the shift with slight muscular discomfort midday only. Muscle relaxer given and this relieved her discomfort. Patient also was concerned about her "dry vegan diet." She says that she is a vegan but the "dry" portion is not working for her. Maybe the MD can place her on a regular vegan diet. Otherwise, patient has been up to the bathroom 4 times today with urination and 1 bowel movement. Patient's BP still drops when levo is discontinued but patient was placed on Midodrine to boost pressure off Levophed. Patient with no other issues or concerns at the end of this shift.
--- NOTE | 2022-12-31 19:30 | NUR ---
RECEIVED AROUSABLE, FOLLOWS COMMANDS, ORIENTED. DE JESUS. PATIENT IS ONO2, OXYMIZER 6 L/MIN. SAT 95%. NO SOB. CARDEIAC MONITOR IS SHOWING NSR, DENIES CHEST PAIN. LEVOPHED IS INFUSING AT 0.15 MCG/KG/MIN. NS AT TKO RATE. ALL IVS VIA RIGHT UPPER ARM MIDLINE. ABDOMEN IS SOFT AND NON-TENDED. VOIDING. AFEBRILE.
[2022-12-31] MEDS: ALBUTEROL SULFATE 0.083% 2.5 MG/3 ML VIAL.NEB INH PRN (21:17)
[2022-12-31] MEDS: IPRATROPIUM BROM 0.5 MG/2.5 ML VIAL.NEB (ATROVENT) INH PRN (21:18)
[2023-01-01] VITALS (24 sets, daily range): BP systolic 87–131
[2023-01-01] MEDS: PIPERACILLIN/TAZO 2.25G/DEX-IS 50 ML IV SCH (05:58)
[2023-01-01] MEDS: HEPARIN SODIUM,PORCINE 5,000 UNITS/ML VIAL SUBCUT SCH ×3 (06:00→22:02)
[2023-01-01 06:38] LABS: HEMATOCRIT 34.8 % (36-48); HEMOGLOBIN 11.5 g/dL (12.0-16.0); MEAN CORPUSCULAR HEMOGLOBIN 28 pg (27-31); MEAN CORPUSCULAR HGB CONC 33 % (32-36); MEAN CORPUSCULAR VOLUME 85 fL (79.0-98.0); PLATELET COUNT (AUTO) 113 K/uL (130-430); RED BLOOD CELL COUNT(AUTO) 4.11 MIL/uL (4.2-6.2); RED CELL DISTRIBUTION WIDTH 24.1 % (9.0-15.0); WHITE BLOOD COUNT (AUTO) 5.7 K/uL (4.8-10.8)
[2023-01-01 07:14] LABS: CALCIUM 9.1 mg/dL (8.4-11.0); CREATININE 1.13 mg/dL (0.55-1.30)
[2023-01-01] MEDS: SACUBITRIL/VALSARTAN 24 MG-26 MG 1 TABLET PO SCH ×3 (09:00→20:28)
[2023-01-01] MEDS: CARVEDILOL 3.125 MG TABLET (COREG) PO SCH ×3 (09:00→20:28)
[2023-01-01] MEDS: ISOSORBIDE MONONITRATE 30 MG TAB.ER.24H PO SCH (09:00)
[2023-01-01] MEDS: MAGNESIUM OXIDE 400 MG TABLET PO SCH ×2 (09:18→20:30)
[2023-01-01] MEDS: DOXYCYCLINE HYCLATE 100 MG CAPSULE PO SCH (09:18)
[2023-01-01] MEDS: FUROSEMIDE 40 MG/4 ML VIAL IVP SCH (09:18)
[2023-01-01] MEDS: MIDODRINE HCL 5 MG TABLET (PROAMATINE) PO SCH ×3 (09:18→22:57)
[2023-01-01] MEDS: BACITRACIN ZINC 15 GM TOPICAL OINTMENT TP SCH ×2 (09:20→22:57)
[2023-01-01] MEDS: HYDROCORTISONE 1% 28.35 GM TOPICAL OINT. TP SCH (09:20)
--- NOTE | 2023-01-01 09:50 | NUR ---
rt notes 0950 Titrated o2 and Placed pt on 5LNC with humidifier. Pt saturating 92%. will cont to monitor pt.
[2023-01-01 13:15] LABS: BASOPHILS % (MANUAL) 0 % (0-2); EOSINOPHILS % (MANUAL) 7 % (0-7); LYMPHOCYTES % (MANUAL) 13 % (20-46); MONOCYTES % (MANUAL) 10 % (0-11)
[2023-01-01] MEDS: CYCLOBENZAPRINE HCL 10 MG TABLET (FLEXERIL) PO PRN (14:20)
--- NOTE | 2023-01-01 14:20 | NUR ---
PAIN PT VERBALIZED DISCOMFORTS TO LEGS AFTER USING THE BATHROOM, STATED "CRAMPS TO MY LEGS", 1 TABLET FLEXERIL GIVEN.
[2023-01-01] MEDS: NOREPINEPHRINE BITARTRATE 32 MG in NS 218 ML IV PRN (16:06)
--- NOTE | 2023-01-01 19:30 | NUR ---
RECEIVED PATIENT AAOX34, DE JESUS, FOLLOWS COMMANDS WELL.PATIENT IS ON 5LPM/ OXYMISEER, SAT WDL., STILL HAS SOB ON EXERTION. CONSOLIDATION ACCOUNTANT SHOWS SR WITH BBB, DENIES CHEST PAIN. LEVOPHED DRIP IS INFUSING AT 0.19 MCG/KG/MIN. CONTINUE BP MONITORING. ABDOMEN IS SOFT AND NON-DISTENDED. VOIDING QS. AFEBRILE.
[2023-01-01] MEDS: FUROSEMIDE 40 MG TABLET PO SCH (20:30)
[2023-01-02] VITALS (23 sets, daily range): BP systolic 79–130
[2023-01-02] MEDS: HEPARIN SODIUM,PORCINE 5,000 UNITS/ML VIAL SUBCUT SCH ×3 (06:02→21:15)
[2023-01-02] MEDS: SACUBITRIL/VALSARTAN 24 MG-26 MG 1 TABLET PO SCH ×2 (08:29→21:11)
[2023-01-02] MEDS: MIDODRINE HCL 5 MG TABLET (PROAMATINE) PO SCH ×3 (08:31→21:13)
[2023-01-02] MEDS: BACITRACIN ZINC 15 GM TOPICAL OINTMENT TP SCH ×2 (08:31→21:14)
[2023-01-02] MEDS: HYDROCORTISONE 1% 28.35 GM TOPICAL OINT. TP SCH (08:32)
[2023-01-02] MEDS: MAGNESIUM OXIDE 400 MG TABLET PO SCH ×2 (08:45→21:13)
[2023-01-02] MEDS: CARVEDILOL 3.125 MG TABLET (COREG) PO SCH ×2 (08:45→21:10)
[2023-01-02] MEDS: FUROSEMIDE 40 MG TABLET PO SCH ×2 (08:49→21:12)
--- NOTE | 2023-01-02 19:35 | NUR ---
RECEIVED AAO X4. DE JESUS, FOLLOWS COMMANDS WELL. PATIENT STILL HAS SOB ON EXERTION, ON O2 AT 5LPM/ OXYMISER. SAT 89-92%. HOB ELEVATED. HVAC TECH SHOWING SR, DENIES CHEST PAIN. ON LEVOPHED DRIP AT 0.2 MCG/KG/MIN VIA RUE MIDLINE. ABDOMEN IS SOFT AND NON-DISTENDED. VOIDING QS. AFEBRILE.
[2023-01-02] MEDS: IPRATROPIUM BROM 0.5 MG/2.5 ML VIAL.NEB (ATROVENT) INH PRN (23:53)
[2023-01-02] MEDS: ALBUTEROL SULFATE 0.083% 2.5 MG/3 ML VIAL.NEB INH PRN (23:53)
--- NOTE | 2023-01-02 23:57 | NUR ---
RT NOTES. PT STATED THAT HER NOSE WAS SORE FROM NASAL CANNULA AND WANTED TO KNOW IF THERE WAS SOMETHING ELSE SHE COULD USE, LIKE A MASK BUT THAT IS NOT THE BIPAP. PLACED ON SIMPLE MASK @6L. PT TOLERATING WELL. NO REP. DISTRESS NOTED. WILL CONTINUE TO MONITOR.
[2023-01-03] VITALS (33 sets, daily range): BP systolic 79–138
--- NOTE | 2023-01-03 | NUR ---
TURNED OFF LEVOPHED, BLOOD PRESSURES STABLE. rt SWITCHED OXYMISER TO FACE MASK, PATIENT IS NOT LIKING IT, SWITCHED BACK TO OXYMISER 5LPM. WILL CONTINUE TO MONITOR.
--- NOTE | 2023-01-03 00:30 | NUR ---
BLOOD PRESSURE IS DROPPING RESTARTED LEVOPHED, DOSE IS AT 0.1 MCG/KG/MIN. PATIENT ALSO VOMITED. ZOFRAN 4MG IVP GIVEN.
[2023-01-03] MEDS: ONDANSETRON HCL 4 MG/2 ML VIAL IVP PRN (00:41)
--- NOTE | 2023-01-03 04:02 | NUR ---
DUE TO DESATURATION, PATIENT WAS PUT BACK ON BIPAP. I/E= 10/5, BUR 14, FIO2 40%. SATURATING 97%. CONTINUE TO MONITOR.
--- NOTE | 2023-01-03 04:02 | NUR ---
RT NOTES. PT WAS DESATTING TO LOW TO MID 80S., TRIED TITRATING NASAL CANNULA AND OXYMIZER BUT PT WOULDN'T TOLERATE. PLACED ON BIPAP 10/5 40% BACK UP RATE OF 14. PT TOLERATING WELL. RR AND SPO2 IMPROVED. NO RESP. DISTRESS NOTED. WILL CONTINUE TO MONITOR. RN NOTIFIED.
[2023-01-03] MEDS: HEPARIN SODIUM,PORCINE 5,000 UNITS/ML VIAL SUBCUT SCH ×2 (05:45→14:00)
[2023-01-03 07:06] LABS: CREATININE 1.2 mg/dL (0.55-1.30)
[2023-01-03 08:15] LABS: HEPATITIS C VIRUS AB Negative <0.8 s/co (0.0-0.7)
[2023-01-03] MEDS: CARVEDILOL 3.125 MG TABLET (COREG) PO SCH ×2 (08:50→20:41)
[2023-01-03] MEDS: FUROSEMIDE 40 MG TABLET PO SCH ×2 (08:50→20:40)
[2023-01-03] MEDS: MAGNESIUM OXIDE 400 MG TABLET PO SCH ×2 (08:51→20:40)
[2023-01-03] MEDS: SACUBITRIL/VALSARTAN 24 MG-26 MG 1 TABLET PO SCH ×2 (08:52→20:40)
[2023-01-03] MEDS: MIDODRINE HCL 5 MG TABLET (PROAMATINE) PO SCH ×3 (08:52→20:43)
[2023-01-03] MEDS: HYDROCORTISONE 1% 28.35 GM TOPICAL OINT. TP SCH (08:53)
[2023-01-03] MEDS: BACITRACIN ZINC 15 GM TOPICAL OINTMENT TP SCH ×2 (08:53→20:43)
--- NOTE | 2023-01-03 09:24 | NUR ---
0730 received awake alert oreinted x4 with bipap on and patient is requesting to get off; told RT to remove and she is put on nasal cannula 5 li/min no distress. levophed at 0.2 mcg/kg/min infusing and decreased levophed to 0.1 mcg/kg/min to maintain map 65.
[2023-01-03] MEDS ORDERED: *LOVENOX 1MG/KG Q12H/PHARMACY XX ONE (14:45)
[2023-01-03] MEDS: ENOXAPARIN SODIUM 100 MG/ML SYRINGE SUBCUT SCH (15:00)
--- NOTE | 2023-01-03 17:21 | NUR ---
1700 WHOLE DAY TODAY UNABLE TO DECREASED THE LEVOPHED DUE TO map WENT DOWN TO 50'S; PATIENT IS AMBULATING TO THE RESTROOM WITHOUT SOB, PATIENT OLD FEMORAL DIALYSIS ACCESS IS WEEPING A LOT CHANGED DRESSING 3 X TODAY USING ABD PAD. PATIENT IS NON COMPLIANCE WITH WATER INTAKE, WHOLE DAY SHE IS KEEP ASKING ICE CHIPS AND BECOME UPSET IF NOT GIVEN. SHE ALREADY INTAKE INCLUDING JUICES, MILK AND WATER 1,800 MLS.
[2023-01-04] VITALS (25 sets, daily range): BP systolic 84–131
[2023-01-04 06:58] LABS: CALCIUM 9.1 mg/dL (8.4-11.0); CREATININE 1.44 mg/dL (0.55-1.30)
[2023-01-04 08:03] LABS: HEMATOCRIT 35.3 % (36-48); HEMOGLOBIN 11.3 g/dL (12.0-16.0); MEAN CORPUSCULAR HEMOGLOBIN 28 pg (27-31); MEAN CORPUSCULAR HGB CONC 32 % (32-36); MEAN CORPUSCULAR VOLUME 87 fL (79.0-98.0); PLATELET COUNT (AUTO) 242 K/uL (130-430); RED BLOOD CELL COUNT(AUTO) 4.05 MIL/uL (4.2-6.2); RED CELL DISTRIBUTION WIDTH 25.1 % (9.0-15.0); WHITE BLOOD COUNT (AUTO) 5.8 K/uL (4.8-10.8)
[2023-01-04] MEDS: MIDODRINE HCL 5 MG TABLET (PROAMATINE) PO SCH ×3 (09:22→22:00)
[2023-01-04] MEDS: CARVEDILOL 3.125 MG TABLET (COREG) PO SCH ×2 (09:23→21:57)
[2023-01-04] MEDS: FUROSEMIDE 20 MG TABLET PO SCH ×2 (09:25→21:56)
[2023-01-04] MEDS: SACUBITRIL/VALSARTAN 24 MG-26 MG 1 TABLET PO SCH ×2 (09:25→21:59)
[2023-01-04] MEDS: BACITRACIN ZINC 15 GM TOPICAL OINTMENT TP SCH ×2 (09:26→22:00)
[2023-01-04] MEDS: ENOXAPARIN SODIUM 100 MG/ML SYRINGE SUBCUT SCH ×2 (09:26→22:01)
[2023-01-04] MEDS: HYDROCORTISONE 1% 28.35 GM TOPICAL OINT. TP SCH (09:26)
[2023-01-04] MEDS: MAGNESIUM OXIDE 400 MG TABLET PO SCH ×2 (09:26→21:59)
[2023-01-04] MEDS: DOPAMINE IV SCH (11:05)
[2023-01-04] MEDS: D5W IV SCH (11:05)
[2023-01-04] MEDS: ONDANSETRON HCL 4 MG/2 ML VIAL IVP PRN (12:42)
[2023-01-04 12:48] LABS: BASOPHILS % (MANUAL) 0 % (0-2); EOSINOPHILS % (MANUAL) 6 % (0-7); LYMPHOCYTES % (MANUAL) 18 % (20-46); MONOCYTES % (MANUAL) 9 % (0-11)
--- NOTE | 2023-01-04 14:18 | NUR ---
Patient is awake and alert, denies pain or discomfort at present. C/o nausea unrelieved by Zofran 4mg. Notified Dr Palmer of complaint, new order received.
[2023-01-04] MEDS: ALBUTEROL SULFATE 0.083% 2.5 MG/3 ML VIAL.NEB INH PRN (14:23)
[2023-01-04] MEDS: IPRATROPIUM BROM 0.5 MG/2.5 ML VIAL.NEB (ATROVENT) INH PRN (14:24)
[2023-01-04] MEDS ORDERED: METOCLOPRAMIDE HCL 10 MG/2 ML VIAL IVP ONE (14:30)
--- NOTE | 2023-01-04 21:15 | NUR ---
Patient awake alert assist out of bed ambulates to Rest Room FALL MEASURES implemented assist back to bed no SOB noted call hughes given to patient / .
[2023-01-04] MEDS: CYCLOBENZAPRINE HCL 10 MG TABLET (FLEXERIL) PO PRN (21:56)
--- NOTE | 2023-01-04 23:19 | NUR ---
Flexeril 10 MG po administer for muscle spasm to lower extremities , position change helpful tolerated / .
[2023-01-05] VITALS (24 sets, daily range): BP systolic 82–137
--- NOTE | 2023-01-05 01:54 | NUR ---
Jemosheo & crackers po per patient Request , and tolerating .
--- NOTE | 2023-01-05 01:55 | NUR ---
DR Avel LOO here to see patient and at the bedside .
--- NOTE | 2023-01-05 06:38 | NUR ---
ASSIST Patient out of bed ambulates to Rest Room no SOB activity tolerated skin dry warm / .
[2023-01-05 07:07] LABS: HEMATOCRIT 33.5 % (36-48); HEMOGLOBIN 11.1 g/dL (12.0-16.0); MEAN CORPUSCULAR HEMOGLOBIN 29 pg (27-31); MEAN CORPUSCULAR HGB CONC 33 % (32-36); MEAN CORPUSCULAR VOLUME 87 fL (79.0-98.0); PLATELET COUNT (AUTO) 224 K/uL (130-430); RED BLOOD CELL COUNT(AUTO) 3.85 MIL/uL (4.2-6.2); RED CELL DISTRIBUTION WIDTH 25.9 % (9.0-15.0)
[2023-01-05] MEDS: MAGNESIUM OXIDE 400 MG TABLET PO SCH ×2 (08:05→21:09)
[2023-01-05] MEDS: MIDODRINE HCL 5 MG TABLET (PROAMATINE) PO SCH ×3 (08:05→21:09)
[2023-01-05] MEDS: BACITRACIN ZINC 15 GM TOPICAL OINTMENT TP SCH ×2 (08:05→21:11)
[2023-01-05] MEDS: HYDROCORTISONE 1% 28.35 GM TOPICAL OINT. TP SCH (08:05)
[2023-01-05] MEDS: FUROSEMIDE 20 MG TABLET PO SCH ×2 (08:05→21:09)
[2023-01-05] MEDS: SACUBITRIL/VALSARTAN 24 MG-26 MG 1 TABLET PO SCH ×2 (08:05→21:10)
[2023-01-05] MEDS: CARVEDILOL 3.125 MG TABLET (COREG) PO SCH ×2 (08:05→21:10)
[2023-01-05] MEDS: ENOXAPARIN SODIUM 100 MG/ML SYRINGE SUBCUT SCH ×2 (08:05→21:10)
[2023-01-05 08:25] LABS: ALBUMIN 2.7 g/dL (3.4-4.8); CALCIUM 8.9 mg/dL (8.4-11.0); CREATININE 1.82 mg/dL (0.55-1.30); TOTAL BILIRUBIN 3.1 mg/dL (0.0-1.0)
--- NOTE | 2023-01-05 09:03 | NUR ---
0805 PT PLACED ON 8L OXY. WILL MONITOR. SAT92%. Addendum: 01/05/23 at 0904 by Heather Doe RT Amended: Links added.
[2023-01-05 13:49] LABS: BASOPHILS % (MANUAL) 0 % (0-2); EOSINOPHILS % (MANUAL) 6 % (0-7); LYMPHOCYTES % (MANUAL) 17 % (20-46); MONOCYTES % (MANUAL) 10 % (0-11)
[2023-01-05] MEDS: D5W IV SCH (18:37)
[2023-01-05] MEDS: DOPAMINE IV SCH (18:37)
--- NOTE | 2023-01-05 19:00 | NUR ---
Opening notes Received report from endorsing morning shift RN for continuity of care. Patient is sitting in bed with IVF levophed @ 0.05 mcg/kg/min, and dopamine @ 2 mcg/kg/min. Patient's vital signs blood pressure 111/68, heart rate 97, respirations 30, and SPO2 94% on 8L oxymizer. Patient uses bedside commode with nurse assist. Bed is locked and in lowest position, call light button within reach, fall and safety precautions is in place.
--- NOTE | 2023-01-05 21:39 | NUR ---
HIGH ALERT NOTE: Called Dr. Palmer back at [phone] identified within the medical roster to verify physician authenticity. For restoril 15 mg PRN.
[2023-01-05] MEDS: TEMAZEPAM 15 MG CAPSULE PO PRN (21:48)
[2023-01-06] VITALS (24 sets, daily range): BP systolic 88–139
[2023-01-06 06:03] LABS: BASOPHILS # (AUTO) 0.1 K/uL (0.0-0.2); BASOPHILS % (AUTO) 2.1 % (0.0-2.0); EOSINOPHILS # (AUTO) 0.4 K/uL (0.0-0.4); EOSINOPHILS % (AUTO) 7.9 % (0.0-4.0); HEMATOCRIT 34.5 % (36-48); HEMOGLOBIN 11.3 g/dL (12.0-16.0); LYMPHOCYTES # (AUTO) 0.6 K/uL (1.0-5.5); LYMPHOCYTES % (AUTO) 11.4 % (20.5-51.5); MEAN CORPUSCULAR HEMOGLOBIN 29 pg (27-31); MEAN CORPUSCULAR HGB CONC 33 % (32-36); MEAN CORPUSCULAR VOLUME 88 fL (79.0-98.0); MONOCYTES # (AUTO) 0.7 K/uL (0.0-1.0); MONOCYTES % (AUTO) 12.2 % (1.7-9.3); NEUTROPHILS # (AUTO) 3.6 K/uL (1.8-7.7); NEUTROPHILS % (AUTO) 66.4 % (40.0-70.0); PLATELET COUNT (AUTO) 226 K/uL (130-430); RED BLOOD CELL COUNT(AUTO) 3.94 MIL/uL (4.2-6.2); RED CELL DISTRIBUTION WIDTH 25.7 % (9.0-15.0); WHITE BLOOD COUNT (AUTO) 5.5 K/uL (4.8-10.8)
[2023-01-06 06:13] LABS: CALCIUM 8.8 mg/dL (8.4-11.0); CREATININE 1.76 mg/dL (0.55-1.30)
[2023-01-06] MEDS: ENOXAPARIN SODIUM 100 MG/ML SYRINGE SUBCUT SCH ×2 (09:33→21:12)
[2023-01-06] MEDS: SACUBITRIL/VALSARTAN 24 MG-26 MG 1 TABLET PO SCH ×2 (09:33→21:09)
[2023-01-06] MEDS: MAGNESIUM OXIDE 400 MG TABLET PO SCH ×2 (09:33→21:11)
[2023-01-06] MEDS: MIDODRINE HCL 5 MG TABLET (PROAMATINE) PO SCH ×3 (09:33→21:11)
[2023-01-06] MEDS: FUROSEMIDE 20 MG TABLET PO SCH ×2 (09:33→21:10)
[2023-01-06] MEDS: CARVEDILOL 3.125 MG TABLET (COREG) PO SCH ×2 (09:33→21:08)
[2023-01-06] MEDS: BACITRACIN ZINC 15 GM TOPICAL OINTMENT TP SCH ×2 (09:34→21:15)
[2023-01-06] MEDS: HYDROCORTISONE 1% 28.35 GM TOPICAL OINT. TP SCH (09:34)
--- NOTE | 2023-01-06 13:16 | NUR ---
Nutrition F/U RD reviewed pts current EMR including diet hx, physician notes, nursing notes, pertinent labs/meds/procedures, care trends and care activity. Short note d/t high workload Subjective Information RD rounded to ICU meeting and s/w RN about pt condition. She attests to pt eating very well and is receiving the proper amount of fluids for her FR. Pt is still in ICU bc she cant get off Levo, d/t heart issues. Apparently pt was not happy with the cardiac diet and MD agreed to put her on regular diet. Pt is likely meeting nutritional needs at this time. Current Diet Order/Nutrition Support Regular diet x 5 days & 1500mL FR ("completed", however RN said it must have and definitely should be "active") % PO intake Good avg of 85% x 11 meals Last BM 01/05 x 3 per EMR Estimated Energy Expenditure (kcals/day) 0243-0911 kcal (30-35 kcal/kg IBW d/t COPD, adult maintenance) Estimated Protein Required (g/day) 60-85g (1.2-1.7 g/kg IBW d/t COPD) Estimated Fluid Required (l/day) Refer to MD (CHF) Problem/Etiology/Signs/Symptoms * Suboptimal nutrient intakes R/T unknown etiology AEB "fair" documented intake of 69% average x 7 meals (resolved) Expected Outcomes/Goals PO intake provides >85% estimated nutrient needs, nutrition-related labs trending WNL, continued skin integrity, BM q1-3 days Dietitian Recommendations * Continue regular diet per MD * Ordered: Ensure Clear BID Follow up * Low risk: f/u in 7 days GS, MPH, RD
--- NOTE | 2023-01-06 13:18 | NUR ---
Dietitian Recommendations * Continue regular diet per MD * Ordered: Ensure Clear BID GS, MPH, RD Please refer to Nutrition F/U for further details. Thanks!
--- NOTE | 2023-01-06 20:00 | NUR ---
RECEIVED PATIENT AWAKE,ALERT AND ORIENTED .AFEBRILE.DENIES ANY PAIN ND DISCOMFORT.ON 5L VIA NC WITH O2 SAT AT 905.REMAINS ON LEVOPHED AT0.1MCG AND DOPAMINE AT2MCG.VSS.ABDOMEN OBESE WITH + BS X4 QUADS.PULSES PRENT AND PALPABLE WITH NOTED EDEMA ON BOTH LOWER AND UPPER EXTREMITIES.WILL CONTINUE TO PROCEED WITH CURRENT PLAN OF CARE.
[2023-01-07] VITALS (24 sets, daily range): BP systolic 96–133
[2023-01-07] MEDS: D5W IV SCH (03:55)
[2023-01-07] MEDS: DOPAMINE IV SCH (03:55)
[2023-01-07 06:48] LABS: CREATININE 1.34 mg/dL (0.55-1.30)
--- NOTE | 2023-01-07 07:56 | NUR ---
Opening Note: Patient is a 32year old female admitted to [facility] 12/14/22, Full Code, MD- Dr. Anderson. DX- ARF, CC- SOB, increased fatigue, fever, CP, baseline 02 2.5-6NC. PMHX: COPD, CHF. 01/05- doppler (-) fem internal jugular, right fem leaks- covered with abdominal pad. Midline to SANTHOSH- intact, patent, dressing CDI. IVF: levo 0.1mcg, Dopamine 2mcg. Alert and oriented x4, NSR on tele monitor, NC6L- saturating 94% at this time. Bipap- PRN not needed last night per report. Uses bedside commode, able to ambulate freely. Regular diet. Skin- Left arm skin tear noted. Regular diet. Cardio rounded- continue trying to wean off pressors, plan for the day.
[2023-01-07] MEDS: CARVEDILOL 3.125 MG TABLET (COREG) PO SCH ×2 (08:28→22:01)
[2023-01-07] MEDS: FUROSEMIDE 20 MG TABLET PO SCH ×2 (08:31→22:09)
[2023-01-07] MEDS: ENOXAPARIN SODIUM 100 MG/ML SYRINGE SUBCUT SCH ×2 (08:31→22:11)
[2023-01-07] MEDS: MAGNESIUM OXIDE 400 MG TABLET PO SCH ×2 (08:31→22:09)
[2023-01-07] MEDS: HYDROCORTISONE 1% 28.35 GM TOPICAL OINT. TP SCH (08:32)
[2023-01-07] MEDS: BACITRACIN ZINC 15 GM TOPICAL OINTMENT TP SCH ×2 (08:33→22:12)
[2023-01-07] MEDS: MIDODRINE HCL 5 MG TABLET (PROAMATINE) PO SCH ×3 (09:11→22:10)
[2023-01-07] MEDS: SACUBITRIL/VALSARTAN 24 MG-26 MG 1 TABLET PO SCH ×2 (09:11→22:05)
--- NOTE | 2023-01-07 19:30 | NUR ---
RECEIVED PATIENT AAO X4. DE JESUS. ON O2 AT 6LPM/NC, SAT 97%. CIRCULAR KNITTER IS SHOWING NSR, DENIES CHEST PAIN. ON LEVOPHED AT 0.05 MCG/KG/MIN AND DOPAMINE AT 2 MCG/KG/MIN, INFUSING TO THE RUE MIDLINE. ABDOMEN IS SOFT AND NON-DISTENDED. AFEBRILE, VOIDING QS. SWELLING NOTED ON BILATERAL LEGS NOTED.
[2023-01-08] VITALS (24 sets, daily range): BP systolic 91–125
[2023-01-08] MEDS: NOREPINEPHRINE BITARTRATE 32 MG in NS 218 ML IV PRN (04:33)
[2023-01-08 07:48] LABS: CALCIUM 8.7 mg/dL (8.4-11.0); CREATININE 1.5 mg/dL (0.55-1.30)
[2023-01-08] MEDS: CARVEDILOL 3.125 MG TABLET (COREG) PO SCH ×2 (08:41→20:26)
[2023-01-08] MEDS: SACUBITRIL/VALSARTAN 24 MG-26 MG 1 TABLET PO SCH ×2 (08:41→20:27)
[2023-01-08] MEDS: MIDODRINE HCL 5 MG TABLET (PROAMATINE) PO SCH ×3 (08:42→20:30)
[2023-01-08] MEDS: MAGNESIUM OXIDE 400 MG TABLET PO SCH ×2 (08:42→20:29)
[2023-01-08] MEDS: FUROSEMIDE 20 MG TABLET PO SCH ×2 (08:42→20:28)
[2023-01-08] MEDS: ENOXAPARIN SODIUM 100 MG/ML SYRINGE SUBCUT SCH (08:43)
[2023-01-08] MEDS: HYDROCORTISONE 1% 28.35 GM TOPICAL OINT. TP SCH (08:43)
[2023-01-08] MEDS: BACITRACIN ZINC 15 GM TOPICAL OINTMENT TP SCH ×2 (08:43→20:30)
[2023-01-08 08:51] LABS: BASOPHILS # (AUTO) 0.1 K/uL (0.0-0.2); BASOPHILS % (AUTO) 1.9 % (0.0-2.0); EOSINOPHILS # (AUTO) 0.4 K/uL (0.0-0.4); EOSINOPHILS % (AUTO) 8.2 % (0.0-4.0); HEMATOCRIT 33.4 % (36-48); HEMOGLOBIN 10.9 g/dL (12.0-16.0); LYMPHOCYTES # (AUTO) 0.6 K/uL (1.0-5.5); LYMPHOCYTES % (AUTO) 12.1 % (20.5-51.5); MEAN CORPUSCULAR HEMOGLOBIN 29 pg (27-31); MEAN CORPUSCULAR HGB CONC 33 % (32-36); MEAN CORPUSCULAR VOLUME 88 fL (79.0-98.0); MONOCYTES # (AUTO) 0.7 K/uL (0.0-1.0); MONOCYTES % (AUTO) 14.3 % (1.7-9.3); NEUTROPHILS # (AUTO) 3.1 K/uL (1.8-7.7); NEUTROPHILS % (AUTO) 63.5 % (40.0-70.0); PLATELET COUNT (AUTO) 221 K/uL (130-430); RED CELL DISTRIBUTION WIDTH 25.2 % (9.0-15.0); WHITE BLOOD COUNT (AUTO) 4.9 K/uL (4.8-10.8)
--- NOTE | 2023-01-08 11:34 | NUR ---
1000 Called to bedside patient complaining of right groin bleeding, (old HD cath site), found with active bleed, manual pressure applied x15 minutes, then pressure dressing applied. Patient instructed to remain in bed at 30 degrees, reduce activity to decrease possibility of rebleeding. \ 1115 Assessed pressure dressing to right groin, no further bleeding noted. Changed dressing to Surgicel with film dressing. Instructed patient to notify RN for further bleeding.
[2023-01-08] MEDS ORDERED: [UNRECOGNIZED DRUG - REMARK] XX SCH (14:45)
[2023-01-08] MEDS: LORazepam 1 MG TABLET PO PRN ×2 (15:23→20:51)
[2023-01-08] MEDS: NEOMY SULF/BACITRAC ZN/POLY 28 GM OINT..GM. TP SCH ×2 (15:36→20:31)
[2023-01-08] MEDS: DOPAMINE IV SCH (16:47)
[2023-01-08] MEDS: D5W IV SCH (16:47)
--- NOTE | 2023-01-08 19:30 | NUR ---
RECEIVED AAO X4, DE JESUS, FOLLOWS COMMANDS WELL. PATIENT IS ON 6 LITERS PER MINUTE OF O2 PER NC, SAT WDL. RACE STARTER IS SHOWING NSR, DENIES CHEST PAIN. LEVOPHED IS INFUSING AT 0.08 MCG/KG/MIN,AND DOPAMINE IS INFUSING AT 2 MCG/KG/MIN FOR RENAL PERFUSION VIA RUE MIDLINE. ABDOMEN IS SOFT AND NON-DISTENDED. ATE 75% OF DINNER. PUREWICK INTACT AND FUNCTIONING WELL. LEFT UPPER ARM IS STILL SWOLLEN. RIGHT FEMORAL AREA WITH PRESSURE DRESSING. AFEBRILE.
[2023-01-08] MEDS: TEMAZEPAM 15 MG CAPSULE PO PRN (20:32)
[2023-01-08] MEDS ORDERED: ENOXAPARIN SODIUM 60 MG/0.6 ML SYRINGE SUBCUT SCH (21:00)
--- NOTE | 2023-01-08 21:30 | NUR ---
PATIENT IS PLACED ON BIPAP. INSTRUCTED TO STAY IN BED.
[2023-01-09] VITALS (48 sets, daily range): BP systolic 83–135
[2023-01-09] MEDS: LORazepam 1 MG TABLET PO PRN ×2 (09:32→16:53)
[2023-01-09] MEDS: CARVEDILOL 3.125 MG TABLET (COREG) PO SCH ×2 (09:33→21:09)
[2023-01-09] MEDS: FUROSEMIDE 20 MG TABLET PO SCH ×2 (09:34→21:06)
[2023-01-09] MEDS: MAGNESIUM OXIDE 400 MG TABLET PO SCH ×2 (09:37→21:05)
[2023-01-09] MEDS: SACUBITRIL/VALSARTAN 24 MG-26 MG 1 TABLET PO SCH ×2 (09:37→21:00)
[2023-01-09] MEDS: MIDODRINE HCL 5 MG TABLET (PROAMATINE) PO SCH ×3 (09:38→21:06)
[2023-01-09] MEDS: HYDROCORTISONE 1% 28.35 GM TOPICAL OINT. TP SCH (09:39)
[2023-01-09] MEDS: BACITRACIN ZINC 15 GM TOPICAL OINTMENT TP SCH ×2 (09:39→21:10)
[2023-01-09] MEDS: NEOMY SULF/BACITRAC ZN/POLY 28 GM OINT..GM. TP SCH ×2 (09:40→21:10)
[2023-01-09] MEDS: IPRATROPIUM BROM 0.5 MG/2.5 ML VIAL.NEB (ATROVENT) INH PRN (17:03)
[2023-01-09] MEDS: ALBUTEROL SULFATE 0.083% 2.5 MG/3 ML VIAL.NEB INH PRN (17:03)
--- NOTE | 2023-01-09 19:45 | NUR ---
RECEIVED REPORT ON PATIENT FROM BOBBY DOUGLAS, ASSUMED CARE, AND STARTED ASSESSMENT.
[2023-01-10] VITALS (20 sets, daily range): BP systolic 89–137
--- NOTE | 2023-01-10 05:28 | NUR ---
PATIENT REFUSED BED BATH AND LINEN CHANGE. ATTEMPTED TPO DRAW BLOOD FROM RIGHT UPPER ARM PICC LINE. THE LINE WOULD NOT ASPIRATE. WILL CONTINUE TO MONITOR AND ASSESS FOR SAFETY AND COMFORT.
[2023-01-10] MEDS: D5W IV SCH (05:59)
[2023-01-10] MEDS: DOPAMINE IV SCH (05:59)
[2023-01-10 07:09] LABS: BASOPHILS # (AUTO) 0.1 K/uL (0.0-0.2); BASOPHILS % (AUTO) 2.4 % (0.0-2.0); EOSINOPHILS # (AUTO) 0.4 K/uL (0.0-0.4); EOSINOPHILS % (AUTO) 7.7 % (0.0-4.0); HEMATOCRIT 32.3 % (36-48); HEMOGLOBIN 10.8 g/dL (12.0-16.0); LYMPHOCYTES # (AUTO) 0.5 K/uL (1.0-5.5); LYMPHOCYTES % (AUTO) 10.2 % (20.5-51.5); MEAN CORPUSCULAR HEMOGLOBIN 29 pg (27-31); MEAN CORPUSCULAR HGB CONC 34 % (32-36); MEAN CORPUSCULAR VOLUME 88 fL (79.0-98.0); MONOCYTES # (AUTO) 0.6 K/uL (0.0-1.0); MONOCYTES % (AUTO) 13.1 % (1.7-9.3); NEUTROPHILS # (AUTO) 3.2 K/uL (1.8-7.7); NEUTROPHILS % (AUTO) 66.6 % (40.0-70.0); PLATELET COUNT (AUTO) 180 K/uL (130-430); RED BLOOD CELL COUNT(AUTO) 3.69 MIL/uL (4.2-6.2); RED CELL DISTRIBUTION WIDTH 25.4 % (9.0-15.0); WHITE BLOOD COUNT (AUTO) 4.9 K/uL (4.8-10.8)
[2023-01-10 07:47] LABS: CALCIUM 8.8 mg/dL (8.4-11.0); CREATININE 1.2 mg/dL (0.55-1.30)
[2023-01-10] MEDS ORDERED: FUROSEMIDE 20 MG/2 ML VIAL IVP ONE (09:30)
[2023-01-10] MEDS: SACUBITRIL/VALSARTAN 24 MG-26 MG 1 TABLET PO SCH ×2 (10:06→23:04)
[2023-01-10] MEDS: MAGNESIUM OXIDE 400 MG TABLET PO SCH ×2 (10:07→23:02)
[2023-01-10] MEDS: MIDODRINE HCL 5 MG TABLET (PROAMATINE) PO SCH ×3 (10:07→23:01)
[2023-01-10] MEDS: LORazepam 1 MG TABLET PO PRN (10:07)
[2023-01-10] MEDS: CARVEDILOL 3.125 MG TABLET (COREG) PO SCH ×2 (10:08→23:04)
[2023-01-10] MEDS: HYDROCORTISONE 1% 28.35 GM TOPICAL OINT. TP SCH (10:11)
[2023-01-10] MEDS: BACITRACIN ZINC 15 GM TOPICAL OINTMENT TP SCH ×2 (10:11→23:05)
[2023-01-10] MEDS: NEOMY SULF/BACITRAC ZN/POLY 28 GM OINT..GM. TP SCH ×2 (10:12→23:05)
--- NOTE | 2023-01-10 16:00 | NUR ---
All bed linens changed bath ready (hot water, with body and frame man, multiple rags) pt set up for bath, assisted with washing pts back, towels for drying in place, pt encouraged to wash her private area independently. Pt has been sitting on the edge of the bed, moving from bed to chair, chair to bedside commode independently, pt eats all meals independently, does not require assistance to wash her private areas. clean socks given. pt continually throws things on the floor garbage container moved closer so pt can put her trash in the container vrs on the floor. Levophed weaned off - dopamine to be turned off. pt to be monitored and transfered to Tele if stable. pt continues to take off her oxygen, ekg leads, bp cuff. pt is AAOx3
[2023-01-10] MEDS: CYCLOBENZAPRINE HCL 10 MG TABLET (FLEXERIL) PO PRN (23:02)
[2023-01-10] MEDS: FUROSEMIDE 20 MG/2 ML VIAL IVP SCH (23:03)
--- NOTE | 2023-01-10 23:50 | NUR ---
1929: Assumed pt care from the day shift. GCS 15, AOx4, pt ambulatory to the toilet. Standby assist x1 person. Per the handoff report, levophed had been turned off since 1200 and dopamine gtt off since 1700. Pt's SBP >90s-110s with map >65. Pt on 5-6L O2 NC and is currently satting low to mid 90s% SpO2. Pt is resting in bed with call lights within reach, will continue to monitor. 2034: Handoff report given to Lyle ROSALES on Med/Surg/Tele, as the room has opened up for the pt and the pt's condition is stable. 2134: No changes in the pt's condition and no changes in the pt's hemodynamics. No events occurred during the transport, and another bedside handoff report was given to the primary nurse Lyle ROSALES along with all the pt's belongings (Pt's laptop and its battery charger tester, clothing, slippers, backpack, cellphone battery charger tester). All questions were answered, and the care endorsed to Lyle ROSALES for the continuity of care.
--- NOTE | 2023-01-11 00:04 | NUR ---
patient awake alert on 02 oxymizer @ 3 LPM 02 SAT 94 % NO sob on exertion , able to self reposition procedures explained / .
[2023-01-11 00:23] VITALS: BP_SYST 118
--- NOTE | 2023-01-11 04:33 | NUR ---
Patient awake ice chips po given small amount fluid restriction noted assist as needed / .
[2023-01-11 06:50] LABS: HEMATOCRIT 31.5 % (36-48); HEMOGLOBIN 10.6 g/dL (12.0-16.0); MEAN CORPUSCULAR HEMOGLOBIN 30 pg (27-31); MEAN CORPUSCULAR HGB CONC 34 % (32-36); MEAN CORPUSCULAR VOLUME 88 fL (79.0-98.0); PLATELET COUNT (AUTO) 159 K/uL (130-430); RED BLOOD CELL COUNT(AUTO) 3.59 MIL/uL (4.2-6.2); RED CELL DISTRIBUTION WIDTH 25.1 % (9.0-15.0); WHITE BLOOD COUNT (AUTO) 3.9 K/uL (4.8-10.8)
[2023-01-11 07:15] LABS: CREATININE 1.32 mg/dL (0.55-1.30)
[2023-01-11 08:00] VITALS: BP_SYST 114; BP_SYST 89
--- NOTE | 2023-01-11 08:00 | NUR ---
Opening Notes Patient is Aox4. Patient dyspneic when moving/ self repositions in bed. Spo2 at 93% on 6 L O2 via NC. Vital signs obtained, as documented. Patient denies pain. RT at bedside. Midline patient. Edema to ROSEMARY present. Breakfast on bedside table. Bed is locked, alarm on, and at lowest position. Call light within reach.
[2023-01-11] MEDS: ALBUTEROL SULFATE 0.083% 2.5 MG/3 ML VIAL.NEB INH PRN ×2 (09:18→19:10)
[2023-01-11] MEDS: IPRATROPIUM BROM 0.5 MG/2.5 ML VIAL.NEB (ATROVENT) INH PRN ×2 (09:18→19:10)
[2023-01-11] MEDS: LORazepam 1 MG TABLET PO PRN ×2 (09:40→20:54)
[2023-01-11] MEDS: SACUBITRIL/VALSARTAN 24 MG-26 MG 1 TABLET PO SCH ×2 (09:40→20:36)
[2023-01-11] MEDS: MAGNESIUM OXIDE 400 MG TABLET PO SCH ×2 (09:41→20:35)
[2023-01-11] MEDS: MIDODRINE HCL 5 MG TABLET (PROAMATINE) PO SCH ×3 (09:41→20:35)
[2023-01-11] MEDS: CARVEDILOL 3.125 MG TABLET (COREG) PO SCH ×2 (09:42→20:36)
[2023-01-11] MEDS: HYDROCORTISONE 1% 28.35 GM TOPICAL OINT. TP SCH (09:43)
[2023-01-11] MEDS: BACITRACIN ZINC 15 GM TOPICAL OINTMENT TP SCH ×2 (09:43→20:37)
[2023-01-11] MEDS: NEOMY SULF/BACITRAC ZN/POLY 28 GM OINT..GM. TP SCH ×2 (09:44→20:38)
[2023-01-11] MEDS: FUROSEMIDE 20 MG/2 ML VIAL IVP SCH ×2 (11:03→20:36)
[2023-01-11 12:00] VITALS: BP_SYST 116
[2023-01-11 12:08] LABS: BASOPHILS % (MANUAL) 0 % (0-2); EOSINOPHILS % (MANUAL) 6 % (0-7); LYMPHOCYTES % (MANUAL) 10 % (20-46); MONOCYTES % (MANUAL) 11 % (0-11)
--- NOTE | 2023-01-11 12:24 | NUR ---
Notes Patient is awake, eating lunch. No ss of acute respiratory distress noted. Patient on 5 L O2 via Oxymizer. Patient denies pain. No SOB noted. Bed is locked, alarm on, and at lowest position. Call light within reach.
--- NOTE | 2023-01-11 16:11 | NUR ---
notes patient is resting, eyes closed, arousable to name. no ss of distress noted. No SOB noted. Patient denies pain. patient stable. safety precautions in place and call light within reach.
[2023-01-11 16:43] VITALS: BP_SYST 115
--- NOTE | 2023-01-11 19:09 | NUR ---
Closing Notes Patient is resting in bed, awake. No ss of distress noted. Patient on 5 L O2 via Oxymizer. Patient is receiving a breathing treatment at this time. Patient denies pain. Midline patent. All needs met. Patient stable. Bed is locked, alarm on, and at lowest position. Call light within reach.
[2023-01-11] MEDS: CYCLOBENZAPRINE HCL 10 MG TABLET (FLEXERIL) PO PRN (20:34)
[2023-01-11 21:00] VITALS: BP_SYST 119
--- NOTE | 2023-01-11 21:15 | NUR ---
FEMORAL RIGHT Side old catheter site clean no bleeding noted no complaints made / continue to monitor .
[2023-01-11] MEDS: BENZOCAINE/MENTHOL 1 EACH LOZENGE MM PRN (23:47)
--- NOTE | 2023-01-11 23:51 | NUR ---
Cepacol given for cough HOB kept elevated & helpful / .
[2023-01-12 00:08] VITALS: BP_SYST 123
--- NOTE | 2023-01-12 03:58 | NUR ---
Hourly Rounding patient Resting encourage assist for position change Respirations Remain Regular also unlabored call hughes with patient / .
--- NOTE | 2023-01-12 04:27 | NUR ---
Lorazepam 0,5mg po given for anxiety & helpful patient resting .
--- NOTE | 2023-01-12 06:00 | NUR ---
old catheter site Right Femoral dressing change done , site clean no bleeding patient tolerated .
[2023-01-12 08:00] VITALS: BP_SYST 116
[2023-01-12 08:45] LABS: CALCIUM 9.3 mg/dL (8.4-11.0); CREATININE 1.15 mg/dL (0.55-1.30)
[2023-01-12] MEDS: ALBUTEROL SULFATE 0.083% 2.5 MG/3 ML VIAL.NEB INH PRN ×2 (09:21→16:30)
[2023-01-12] MEDS: IPRATROPIUM BROM 0.5 MG/2.5 ML VIAL.NEB (ATROVENT) INH PRN ×2 (09:21→16:30)
[2023-01-12] MEDS: MIDODRINE HCL 5 MG TABLET (PROAMATINE) PO SCH ×3 (09:58→20:59)
[2023-01-12] MEDS: MAGNESIUM OXIDE 400 MG TABLET PO SCH ×2 (09:58→20:59)
[2023-01-12] MEDS: CARVEDILOL 3.125 MG TABLET (COREG) PO SCH ×2 (09:59→20:47)
[2023-01-12] MEDS: HYDROCORTISONE 1% 28.35 GM TOPICAL OINT. TP SCH (10:00)
[2023-01-12] MEDS: FUROSEMIDE 20 MG/2 ML VIAL IVP SCH ×2 (10:00→21:00)
[2023-01-12] MEDS: BACITRACIN ZINC 15 GM TOPICAL OINTMENT TP SCH ×2 (10:01→21:00)
[2023-01-12] MEDS: NEOMY SULF/BACITRAC ZN/POLY 28 GM OINT..GM. TP SCH ×2 (10:01→21:00)
[2023-01-12] MEDS: SACUBITRIL/VALSARTAN 24 MG-26 MG 1 TABLET PO SCH ×2 (10:17→21:01)
[2023-01-12] MEDS: LORazepam 1 MG TABLET PO PRN ×2 (10:17→19:18)
[2023-01-12 11:15] VITALS: BP_SYST 116
--- NOTE | 2023-01-12 12:35 | NUR ---
Follow up call made to [facility] to check the status of the patient's inquiry for placement that was submitted yesterday. Per Jenniffer, they are unable to accept patient due to her age and drug history. I sent out a new inquiry to [facility] and [facility]. The SNFs were advised that the patient is ready for discharge. [facility]: [phone] [facility]: [phone]
--- NOTE | 2023-01-12 14:50 | NUR ---
Miss Florez is crying out in discomfort. She states that she has a cramp in her right leg. She asks this fiction and nonfiction writer prose to rub the are. This is done lightly and gently. She does have some relief. moist heat is applied with a warm towel that is lifted everry 30 seconds for about 5 minutes. Miss Florez is able to rest after this intervention. She is resting quietly at this time
[2023-01-12 15:30] VITALS: BP_SYST 108
--- NOTE | 2023-01-12 18:21 | NUR ---
Miss Florez has been assessed as indicated. She continues to deny pain. she was very concerned with the dressing and drainage to the wound on her left arm. the dressing was changed and new orders were received regarding the area. The dressing to her right groin was changed also. She was successfully treated for anxiety x1 this shift. She states that she cannot seem to blow her nose and would like nasal spray. An order has been obtained. She does ambulate to the restroom with no assistance. She remains dependent on oxygen. She is presently resting quietly at this time
[2023-01-12] MEDS ORDERED: SODIUM CHLORIDE 0.65% NASAL SPRAY NS PRN (18:30)
--- NOTE | 2023-01-12 19:30 | NUR ---
Handoff has been given to Richard
[2023-01-12 19:58] VITALS: BP_SYST 96
--- NOTE | 2023-01-12 20:00 | NUR ---
Recieved pt from AM nurse. Patient is Aox4. Patient dyspneic when moving/ self repositions in bed. Spo2 at 93% on 4 L O2 via NC sat 98%. Vital signs obtained, as documented. Patient denies pain, just withdrawals, and anxiety. RT at bedside, state that pt has withdrawals, and tends to want bipap only to remove it within 10 min. Midline patient. Edema to ROSEMARY present, dressing change. Bed is locked, alarm on, and at lowest position. Call light within reach.
[2023-01-13 01:49] VITALS: BP_SYST 100
[2023-01-13] MEDS: TEMAZEPAM 15 MG CAPSULE PO PRN ×2 (02:43→23:13)
--- NOTE | 2023-01-13 03:05 | NUR ---
2nd dressing change on ROSEMARY. pt requested Sleeping aid late, administered [id number]
[2023-01-13 07:09] LABS: BASOPHILS # (AUTO) 0.1 K/uL (0.0-0.2); BASOPHILS % (AUTO) 2.5 % (0.0-2.0); EOSINOPHILS # (AUTO) 0.3 K/uL (0.0-0.4); EOSINOPHILS % (AUTO) 6.4 % (0.0-4.0); HEMATOCRIT 31.4 % (36-48); HEMOGLOBIN 10.3 g/dL (12.0-16.0); LYMPHOCYTES # (AUTO) 0.6 K/uL (1.0-5.5); MEAN CORPUSCULAR HEMOGLOBIN 29 pg (27-31); MEAN CORPUSCULAR HGB CONC 33 % (32-36); MEAN CORPUSCULAR VOLUME 89 fL (79.0-98.0); MONOCYTES # (AUTO) 0.6 K/uL (0.0-1.0); MONOCYTES % (AUTO) 12.2 % (1.7-9.3); NEUTROPHILS # (AUTO) 3.3 K/uL (1.8-7.7); NEUTROPHILS % (AUTO) 66.9 % (40.0-70.0); PLATELET COUNT (AUTO) 156 K/uL (130-430); RED BLOOD CELL COUNT(AUTO) 3.53 MIL/uL (4.2-6.2); RED CELL DISTRIBUTION WIDTH 25.1 % (9.0-15.0); WHITE BLOOD COUNT (AUTO) 4.9 K/uL (4.8-10.8)
--- NOTE | 2023-01-13 07:35 | NUR ---
OPENING NOTE Received report from BOBBY Ramos. Upon entering room, patient sleeping calmly in bed. No s/s of pain, distress, or discomfort observed. Midline site visualized as intact. Call light within reach. Safety precautions observed.
[2023-01-13 07:39] LABS: CALCIUM 8.8 mg/dL (8.4-11.0); CREATININE 1.43 mg/dL (0.55-1.30)
[2023-01-13 08:05] VITALS: BP_SYST 108
[2023-01-13] MEDS: MIDODRINE HCL 5 MG TABLET (PROAMATINE) PO SCH ×3 (08:51→21:30)
[2023-01-13] MEDS: CARVEDILOL 3.125 MG TABLET (COREG) PO SCH ×2 (08:52→21:00)
[2023-01-13] MEDS: MAGNESIUM OXIDE 400 MG TABLET PO SCH ×2 (08:53→21:30)
[2023-01-13] MEDS: FUROSEMIDE 20 MG/2 ML VIAL IVP SCH (08:53)
[2023-01-13] MEDS: HYDROCORTISONE 1% 28.35 GM TOPICAL OINT. TP SCH (08:55)
[2023-01-13] MEDS: NEOMY SULF/BACITRAC ZN/POLY 28 GM OINT..GM. TP SCH ×2 (08:56→21:33)
[2023-01-13] MEDS: SACUBITRIL/VALSARTAN 24 MG-26 MG 1 TABLET PO SCH ×2 (09:00→21:32)
--- NOTE | 2023-01-13 09:30 | NUR ---
ALLISON HELD Other BP meds given. XT=107/69.
[2023-01-13 12:51] VITALS: BP_SYST 102
--- NOTE | 2023-01-13 13:30 | NUR ---
WOUND CARE Wound care completed on left forearm as ordered.
--- NOTE | 2023-01-13 15:55 | NUR ---
RN ROUNDS Patient sleeping in bed calmly at this time. No s/s of pain or discomfort at this time. IV site remains intact. Call light within reach. Safety precautions observed.
[2023-01-13 17:01] VITALS: BP_SYST 95
[2023-01-13] MEDS: IPRATROPIUM BROM 0.5 MG/2.5 ML VIAL.NEB (ATROVENT) INH PRN (19:28)
[2023-01-13] MEDS: ALBUTEROL SULFATE 0.083% 2.5 MG/3 ML VIAL.NEB INH PRN (19:31)
[2023-01-13 20:00] VITALS: BP_SYST 102
[2023-01-13] MEDS: APIXABAN 2.5 MG TABLET PO SCH (21:30)
[2023-01-13] MEDS: LORazepam 1 MG TABLET PO PRN (23:13)
[2023-01-14] VITALS: BP_SYST 114
[2023-01-14 08:00] VITALS: BP_SYST 121
[2023-01-14] MEDS: MAGNESIUM OXIDE 400 MG TABLET PO SCH ×2 (09:00→21:36)
[2023-01-14] MEDS: HYDROCORTISONE 1% 28.35 GM TOPICAL OINT. TP SCH (09:00)
[2023-01-14] MEDS: FUROSEMIDE 40 MG TABLET PO SCH (09:00)
[2023-01-14] MEDS: CARVEDILOL 3.125 MG TABLET (COREG) PO SCH ×2 (09:00→21:36)
[2023-01-14] MEDS: SACUBITRIL/VALSARTAN 24 MG-26 MG 1 TABLET PO SCH ×2 (09:00→21:43)
[2023-01-14] MEDS: MIDODRINE HCL 5 MG TABLET (PROAMATINE) PO SCH ×3 (09:00→21:36)
[2023-01-14] MEDS: APIXABAN 2.5 MG TABLET PO SCH ×2 (09:00→21:37)
[2023-01-14] MEDS: NEOMY SULF/BACITRAC ZN/POLY 28 GM OINT..GM. TP SCH ×2 (09:00→21:37)
[2023-01-14] MEDS: IPRATROPIUM BROM 0.5 MG/2.5 ML VIAL.NEB (ATROVENT) INH PRN ×2 (11:18→15:46)
[2023-01-14] MEDS: ALBUTEROL SULFATE 0.083% 2.5 MG/3 ML VIAL.NEB INH PRN ×2 (11:18→15:46)
--- NOTE | 2023-01-14 11:23 | NUR ---
Senior Project Accountant CORPORATE LEGAL MANAGER called pts. hospice companyMisty to inquire which SNF companies they have attempted to place pt. in because pts. insurance is going to also try to find a placement. CORPORATE LEGAL MANAGER called Misty, (Alternate number/[phone]) and spoke to Cait who shred this list with CORPORATE LEGAL MANAGER. Misty has called the following facilities who denied pt. [facility]. CORPORATE LEGAL MANAGER will share this info with pts. insurance company. Addendum: 01/14/23 at 1201 by Kristel Roach MSW Senior Project Accountant Also added to the list of facilities that denied pt. [facility]. Addendum: 01/14/23 at 1330 by Kristel Roach MSW Senior Project Accountant CORPORATE LEGAL MANAGER faxed over the above mentioned list to pts. insurance provider CM with [facility], ph. [phone] fx. [phone]. When CORPORATE LEGAL MANAGER called Lydia, she stated she did receive CORPORATE LEGAL MANAGER's list that was faxd.
[2023-01-14 11:30] VITALS: BP_SYST 103
[2023-01-14] MEDS: ACETAMINOPHEN 325 MG TABLET PO PRN ×2 (12:16→12:18)
[2023-01-14 15:55] VITALS: BP_SYST 111
--- NOTE | 2023-01-14 16:35 | NUR ---
RESPONDED TO RAPID RESPONSE TO ROOM 110A, STAFF AT BEDSIDE. CHARGE NURSE IN ROOM. PT WITH DESATURATION AND RESP DISTRESS, PTS FAMILY AT BEDSIDE STATING TO "DO EVERYTHING"
[2023-01-14 20:00] VITALS: BP_SYST 129
[2023-01-14] MEDS: LORazepam 1 MG TABLET PO PRN (21:36)
[2023-01-15] VITALS: BP_SYST 123
[2023-01-15 08:00] VITALS: BP_SYST 111
[2023-01-15] MEDS: MIDODRINE HCL 5 MG TABLET (PROAMATINE) PO SCH ×3 (08:07→21:48)
[2023-01-15] MEDS: APIXABAN 2.5 MG TABLET PO SCH ×2 (08:08→21:52)
[2023-01-15] MEDS: MAGNESIUM OXIDE 400 MG TABLET PO SCH ×2 (08:09→21:48)
[2023-01-15] MEDS: SACUBITRIL/VALSARTAN 24 MG-26 MG 1 TABLET PO SCH ×2 (08:09→21:59)
[2023-01-15] MEDS: CARVEDILOL 3.125 MG TABLET (COREG) PO SCH ×2 (08:15→21:47)
[2023-01-15] MEDS: NEOMY SULF/BACITRAC ZN/POLY 28 GM OINT..GM. TP SCH ×2 (08:15→21:48)
[2023-01-15] MEDS: HYDROCORTISONE 1% 28.35 GM TOPICAL OINT. TP SCH (08:15)
[2023-01-15] MEDS: FUROSEMIDE 40 MG TABLET PO SCH (08:15)
[2023-01-15] MEDS: LORazepam 1 MG TABLET PO PRN ×2 (08:20→21:52)
[2023-01-15 12:00] VITALS: BP_SYST 106
--- NOTE | 2023-01-15 12:39 | NUR ---
Drum Carrier MOPPER met with with pt. once again. Pt. was sitting upright in her bedside chair, combing her hair, waiting to take a shower. Pt. was speaking slowly and was a little out of breath during this conversation. Pt. stated she had been living in an Air B&B with a friend of her fathers and he kicked her out. Pt. stated he was a drug user as well. Pt. stated she has been clean since being in the hospital (Since 12/14/22). 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 She was smoking it. Additionally, pt. stated back in 2018, she had completed a 45-day drug program in [place], "[facility]" and they have, "[facility]" where they do assessments. Pt. may call to see if she can get substance abuse services. When asked, Pt. stated she does want to go back on hospice and is ready to try a new company other than the one she had been on prior to hospitalization, [employer]. MOPPER can provide pt. with a list of possible resources. Pt. stated she is fine with any other company. MOPPER was in contact with Ulises from [facility], who is going to look for a SNF that can take this pt. on hospice.
--- NOTE | 2023-01-15 15:47 | NUR ---
Patient accepted by [facility] [phone]. The patient will probably have a bed at [facility] 01/16/23. Hospice will be here to evaluate patient today and arrange transfer tomorrow. Addendum: 01/15/23 at 1551 by Sulma Cifuentes RN Cell # for Hospice is [phone]
[2023-01-15 16:00] VITALS: BP_SYST 97
[2023-01-15] MEDS: IPRATROPIUM BROM 0.5 MG/2.5 ML VIAL.NEB (ATROVENT) INH PRN (16:06)
[2023-01-15] MEDS: ALBUTEROL SULFATE 0.083% 2.5 MG/3 ML VIAL.NEB INH PRN (16:06)
[2023-01-15] MEDS ORDERED: METHYLPREDNISOLONE SOD SUCC 40 MG/ML VIAL IVP ONE (16:15)
--- NOTE | 2023-01-15 17:55 | NUR ---
Evonne of [facility] ([phone]) called and was provided with Miss Florez's height and weight as is noted on this screen. She also requested that a rapid Covid test be completed nurse Sandra was made aware of this request
--- NOTE | 2023-01-15 19:16 | NUR ---
pt a&o. vss. pt dyspneic at rest with pursed lip breathing. 3L NC on/off. pt took shower. no c/o pain. prn ativan given once. fall precautions in place no c/o pain.
--- NOTE | 2023-01-15 19:30 | NUR ---
PATIENT IS ALERT AND VERBALLY RESPONSIVE. A&OX4. STABLE AND AFEBRILE. PATIENT NOTED WITH HX SOB UPON EXERTION TO RESTROOM PREVIOUS SHIFT. PATIENT O2 MAINTAINS 90% @ 5LPM NC. MD IS ALREADY AWARE. ENCOURAGED DEEP BREATHING EXERCISES. PATIENT RETURNED DEMO. NO SOB AT THIS TIME. ADMITTED WITH DX: ACUTE RESPIRATORY AND ACUTE CHF EXACERBATION. HX: CHF,COPD, IJ NON OCCLUSIVE, HX DRUG USE, PULMONARY EDEMA. DENIES CP. DENIES PAIN IN GENERAL AT THIS TIME. PATIENT HAS PICC ON [facility] CLEAN AND DRY SALINE LOCKED AND CAPPED. PATIENT IS CONTINENT B&B WITH BATHROOM PRIVILEGES. HOB ELEVATED. PATIENT CONTINUED ON SOLUMEDROL/ BREATHING TX ORDERED. PATIENT USES BIPAP TO SLEEP. FALL PRECAUTIONS OBSERVED. EDUCATED PATIENT TO USE CALL LIGHT IN NEED OF ASSISTANCE. CALL LIGHT WITHIN REACH. ALL NEEDS MET. CONTINUE PLAN OF CARE.
[2023-01-15] MEDS: METHYLPREDNISOLONE SOD SUCC 40 MG/ML VIAL IVP SCH (21:46)
[2023-01-16 00:59] VITALS: BP_SYST 114
[2023-01-16] MEDS: BENZOCAINE/MENTHOL 1 EACH LOZENGE MM PRN ×2 (02:49→21:37)
[2023-01-16 05:46] VITALS: BP_SYST 116
[2023-01-16 05:49] VITALS: BP_SYST 118
--- NOTE | 2023-01-16 07:41 | NUR ---
HAND OFF REPORT GIVEN. PATIENT AWAKE SITTING IN CHAIR. NO CHANGES IN CONDITION NOTED. NO S/S RESPIRATORY DISTRESS. BREATHING EVEN AND NON LABORED. STABLE AND AFEBRILE AT THIS TIME. DENIES PAIN. ALL NEEDS MET. CALL LIGHT IN REACH.
--- NOTE | 2023-01-16 08:07 | NUR ---
OPENING NOTES: RECEIVED BEDSIDE SBAR FROM SHIFT NURSE, PATIENT SITTING IN CHAIR, NO S/S OF ANY DISTRESS, BED AT LOW AND LOCKED POSITION CALL LIGHT IN REACH, ALL SAFETY CHECKS DONE AND WILL DO THOUGHT THE DAY. WILL MONITOR PATIENT PER ORDERS.
[2023-01-16 08:08] LABS: BASOPHILS % (AUTO) 0.4 % (0.0-2.0); HEMATOCRIT 34.7 % (36-48); HEMOGLOBIN 11.2 g/dL (12.0-16.0); LYMPHOCYTES # (AUTO) 0.3 K/uL (1.0-5.5); LYMPHOCYTES % (AUTO) 5.4 % (20.5-51.5); MEAN CORPUSCULAR HEMOGLOBIN 29 pg (27-31); MEAN CORPUSCULAR HGB CONC 32 % (32-36); MEAN CORPUSCULAR VOLUME 90 fL (79.0-98.0); MONOCYTES # (AUTO) 0.1 K/uL (0.0-1.0); MONOCYTES % (AUTO) 1.5 % (1.7-9.3); NEUTROPHILS # (AUTO) 5.1 K/uL (1.8-7.7); NEUTROPHILS % (AUTO) 92.7 % (40.0-70.0); PLATELET COUNT (AUTO) 154 K/uL (130-430); RED BLOOD CELL COUNT(AUTO) 3.87 MIL/uL (4.2-6.2); RED CELL DISTRIBUTION WIDTH 24.4 % (9.0-15.0); WHITE BLOOD COUNT (AUTO) 5.5 K/uL (4.8-10.8)
[2023-01-16] MEDS: CARVEDILOL 3.125 MG TABLET (COREG) PO SCH ×2 (09:58→21:27)
[2023-01-16] MEDS: FUROSEMIDE 40 MG TABLET PO SCH (09:58)
[2023-01-16] MEDS: MIDODRINE HCL 5 MG TABLET (PROAMATINE) PO SCH ×3 (09:59→21:11)
[2023-01-16] MEDS: MAGNESIUM OXIDE 400 MG TABLET PO SCH ×2 (09:59→21:12)
[2023-01-16] MEDS: SACUBITRIL/VALSARTAN 24 MG-26 MG 1 TABLET PO SCH ×2 (09:59→21:12)
[2023-01-16] MEDS: APIXABAN 2.5 MG TABLET PO SCH ×2 (10:00→21:11)
[2023-01-16] MEDS: HYDROCORTISONE 1% 28.35 GM TOPICAL OINT. TP SCH (10:10)
[2023-01-16] MEDS: NEOMY SULF/BACITRAC ZN/POLY 28 GM OINT..GM. TP SCH ×2 (10:11→21:12)
[2023-01-16] MEDS: METHYLPREDNISOLONE SOD SUCC 40 MG/ML VIAL IVP SCH ×2 (10:12→21:11)
[2023-01-16] MEDS: LORazepam 1 MG TABLET PO PRN ×2 (10:16→21:37)
--- NOTE | 2023-01-16 10:44 | NUR ---
>>>PT NOTES<<< PATIENT REFUSED PHYSICAL THERAPY TODAY DUE TO C/O TIREDNESS.
[2023-01-16 14:18] LABS: CALCIUM 8.9 mg/dL (8.4-11.0); CREATININE 1.06 mg/dL (0.55-1.30); TOTAL BILIRUBIN 2.4 mg/dL (0.0-1.0)
--- NOTE | 2023-01-16 16:35 | NUR ---
RT NOTE: 1635 Patient prefers O2 via mask. Post HHN tx, patient placed on Venturi mask at 6LPM, 30% FiO2. Patient tolerating well. Increased aeration, improve breath sounds, and WOB post tx. Addendum: 01/16/23 at 1640 by Alie Ornelas RT Amended: Links added.
[2023-01-16] MEDS: ALBUTEROL SULFATE 0.083% 2.5 MG/3 ML VIAL.NEB INH PRN (16:37)
[2023-01-16] MEDS: IPRATROPIUM BROM 0.5 MG/2.5 ML VIAL.NEB (ATROVENT) INH PRN (16:37)
--- NOTE | 2023-01-16 17:59 | NUR ---
FAXED NEG COVID-19 RESULTS TO PER HOSPICE KIM
--- NOTE | 2023-01-16 18:25 | NUR ---
CLOSING NOTES: PATIENT REMAINED STABLE THOUGHT THE DAY, NO S/S OF ANY DISTRESS, ALL NEEDS MEET, SAFETY CHECKS DONE THOUGHT THE DAY, CALL LIGHT IN REACH, BED IN LOW POSITION. WILL GIVE PM SHIFT NURSE BEDSIDE SBAR.
--- NOTE | 2023-01-16 18:25 | NUR ---
PATIENT HAS DIARRHEA, WITH SOME RECTAL BLEEDING 10ML, WILL PAGE DOCTOR
--- NOTE | 2023-01-16 18:55 | NUR ---
HOLD DISCHARGE UNTIL GI DR GILLESPIE SEE PATIENT TOMORROW RECTAL BLEEDING WITH DIARRHEA
[2023-01-16 19:50] VITALS: BP_SYST 145
--- NOTE | 2023-01-16 19:50 | NUR ---
PM ASSESSMENT; -Patient is awake, alert, oriented X 4. Pt denies any chest pain,pain,sob,or any acute distress. Patient oriented to hospital room, call light, toileting, pain management and safety-teach back done. Pt is on 5L n/c oxy [id number]%. SANTHOSH PICC drsg cdi. Discussed poc,all safety measures, pt verbalized understanding. Pt is self ambulatory with steady gaits. Pt stated that she had x3 diarrhea during day shift and x1 now. Informed pt that will page to get antidiarrhea med, she verbalized understanding. Fall precaution in place. Bed alarmed, side rails x3,Call light within reach. Cont to monitor pt.
[2023-01-16] MEDS: LOPERAMIDE HCL 2 MG CAPSULE PO SCH (21:58)
[2023-01-17 00:20] VITALS: BP_SYST 121
--- NOTE | 2023-01-17 00:20 | NUR ---
ROUNDS; -Pt awakes, sitting on a bed watching movie. Pt denies any pain,sob,or any acute distress. Pt had an episode of small diarrhea no blood noted. Call light w/in reach, side rails x2. Cont to monitor pt.
--- NOTE | 2023-01-17 06:44 | NUR ---
CLOSING NOTES; -Pt is resting in bed. No s/s any acute distress. Pt's condition stable. Call light w/in reach, side rails x2. Will endorse to next nurse to cont care.
--- NOTE | 2023-01-17 06:45 | NUR ---
ROUNDS; -Pt is resting in bed. No ss/ any acute distress noted. Call light w/in reach, side rails x2. Cont to monitor pt.
[2023-01-17 08:00] VITALS: BP_SYST 110
--- NOTE | 2023-01-17 08:04 | NUR ---
OPENING NOTES: RECEIVED BEDSIDE SBAR FROM PM SHIFT NURSE, PATIENT RESTING IN BED WITH EYES CLOSED NO S/S OF ANY DISTRESS, BED IN LOW AND LOCKED POSITION, CALL LIGHT IN REACH, ALL SAFETY CHECKS DONE AND WILL DO THOUGHT THE DAY. WILL MONITOR PATIENT THOUGHT THE DAY.
[2023-01-17] MEDS: LOPERAMIDE HCL 2 MG CAPSULE PO SCH ×2 (10:08→13:00)
[2023-01-17] MEDS: MIDODRINE HCL 5 MG TABLET (PROAMATINE) PO SCH ×3 (10:08→22:53)
[2023-01-17] MEDS: FUROSEMIDE 40 MG TABLET PO SCH (10:09)
[2023-01-17] MEDS: CARVEDILOL 3.125 MG TABLET (COREG) PO SCH ×2 (10:09→21:00)
[2023-01-17] MEDS: SACUBITRIL/VALSARTAN 24 MG-26 MG 1 TABLET PO SCH ×2 (10:10→21:00)
[2023-01-17] MEDS: MAGNESIUM OXIDE 400 MG TABLET PO SCH ×2 (10:10→21:00)
[2023-01-17] MEDS: NEOMY SULF/BACITRAC ZN/POLY 28 GM OINT..GM. TP SCH ×2 (10:10→21:00)
[2023-01-17] MEDS: HYDROCORTISONE 1% 28.35 GM TOPICAL OINT. TP SCH (10:11)
[2023-01-17] MEDS: APIXABAN 2.5 MG TABLET PO SCH ×2 (10:15→22:51)
--- NOTE | 2023-01-17 15:38 | NUR ---
DR WEST AT BEDSIDE, PATIENTS CLEAR TO BE DISCHARGED
--- NOTE | 2023-01-17 15:39 | NUR ---
SPOKE WITH KIM WITH HOSPICE PATIENT IS OK TO BE DISCHARGED TO [facility].
--- NOTE | 2023-01-17 15:51 | NUR ---
PER DR GILLESPIE, CHANGE IMODIUM TO PRN
[2023-01-17] MEDS ORDERED: LOPERAMIDE HCL 2 MG CAPSULE PO PRN (16:00)
[2023-01-17] MEDS: ALBUTEROL SULFATE 0.083% 2.5 MG/3 ML VIAL.NEB INH PRN ×3 (16:31→20:43)
[2023-01-17] MEDS: IPRATROPIUM BROM 0.5 MG/2.5 ML VIAL.NEB (ATROVENT) INH PRN ×3 (16:31→20:43)
[2023-01-17 20:00] VITALS: BP_SYST 109
[2023-01-17] MEDS: LORazepam 1 MG TABLET PO PRN (22:54)
--- NOTE | 2023-01-18 05:53 | NUR ---
Patient is alert, oriented, at this time she is resting well, she received PO Ativan 0.5mg in shift for anxiety and to help her sleep. Patient is using 02 5L/nc, no acute respiratory distress noted. Patient is scheduled for discharge home with hospice care this AM, vitals are stable.
[2023-01-18 08:00] VITALS: BP_SYST 132
[2023-01-18] MEDS: MIDODRINE HCL 5 MG TABLET (PROAMATINE) PO SCH (09:00)
[2023-01-18] MEDS: IPRATROPIUM BROM 0.5 MG/2.5 ML VIAL.NEB (ATROVENT) INH PRN (09:03)
[2023-01-18] MEDS: ALBUTEROL SULFATE 0.083% 2.5 MG/3 ML VIAL.NEB INH PRN (09:03)
[2023-01-18] MEDS: FUROSEMIDE 40 MG TABLET PO SCH (09:49)
[2023-01-18] MEDS: MAGNESIUM OXIDE 400 MG TABLET PO SCH (09:50)
[2023-01-18] MEDS: CARVEDILOL 3.125 MG TABLET (COREG) PO SCH (09:50)
[2023-01-18] MEDS: APIXABAN 2.5 MG TABLET PO SCH (09:53)
[2023-01-18] MEDS: SACUBITRIL/VALSARTAN 24 MG-26 MG 1 TABLET PO SCH (09:55)
--- NOTE | 2023-01-18 11:05 | NUR ---
New Accounts Representative GLASS FURNACE TENDER recevied a call from Isaac from [facility] and notified GLASS FURNACE TENDER that Vikki was suppose to dischage over the weekend but doctor wanted a GI consult. Now they will transport pt. to [facility] for hospice services. Pt. will be transported today between 12-2. GLASS FURNACE TENDER notified Rn. Javier of this dischare and transportation plan.
[2023-01-18 12:15] VITALS: BP_SYST 132
[2023-01-18] MEDS ORDERED: MIDO5TAB4 PO (12:37)
[2023-01-18] MEDS: NEOMY SULF/BACITRAC ZN/POLY 28 GM OINT..GM. TP SCH (14:15)
[2023-01-18] MEDS: HYDROCORTISONE 1% 28.35 GM TOPICAL OINT. TP SCH (14:16)
--- NOTE | 2023-01-18 15:10 | NUR ---
RN MEDICALLY CLEARED PATIENT FOR PT TREATMENT TODAY, HOWEVER PATIENT REFUSED TREATMENT STATING SHE DOESN'T WANT TO DO IT BECAUSE SHE WILL BE LEAVING TODAY.
--- NOTE | 2023-01-18 16:25 | NUR ---
PATIENT BEING DISCHARGED TO HOSPICE, REPORT GIVEN VIDHI AT [facility]. MIDLINE CATHETER REMOVED. PATENT BELONGINGS PACKED AND GIVEN TO PATIENT.
== END 2023-01-18 16:25 | disposition hospice, inpatient (51) | DRG 720 ==
LOC: SED 10:25 → STU 15:58 → SIC 12-17 23:18 → STU 12-19 18:26 → SMU 12-22 18:25 → SIC 12-23 10:01 → STU 01-10 21:30 → SMU 01-14 12:58
PROVIDERS: ADMIT Internal Medicine; ATTEND Internal Medicine
PROC: 5A0935A Assistance with Respiratory Ventilation, Less than 24 Consecutive Hours, High Flow/Velocity Cannula (ICD-10-PCS; 2022-12-15)
PROC: 5A0935A Assistance with Respiratory Ventilation, Less than 24 Consecutive Hours, High Flow/Velocity Cannula (ICD-10-PCS; 2022-12-17)
PROC: 5A09357 Assistance with Respiratory Ventilation, Less than 24 Consecutive Hours, Continuous Positive Airway Pressure (ICD-10-PCS; 2022-12-17)
PROC: 05JY3ZZ Inspection of Upper Vein, Percutaneous Approach (ICD-10-PCS; principal; 2022-12-23)
PROC: 5A09357 Assistance with Respiratory Ventilation, Less than 24 Consecutive Hours, Continuous Positive Airway Pressure (ICD-10-PCS; 2022-12-23)
PROC: B54BZZA Ultrasonography of Right Lower Extremity Veins, Guidance (ICD-10-PCS; 2022-12-24)
PROC: 06HY33Z Insertion of Infusion Device into Lower Vein, Percutaneous Approach (ICD-10-PCS; 2022-12-24)
PROC: 5A1D70Z Performance of Urinary Filtration, Intermittent, Less than 6 Hours Per Day (ICD-10-PCS; 2022-12-24)
PROC: 5A09357 Assistance with Respiratory Ventilation, Less than 24 Consecutive Hours, Continuous Positive Airway Pressure (ICD-10-PCS; 2022-12-24)
PROC: 5A1D70Z Performance of Urinary Filtration, Intermittent, Less than 6 Hours Per Day (ICD-10-PCS; 2022-12-25)
PROC: 5A0955A Assistance with Respiratory Ventilation, Greater than 96 Consecutive Hours, High Flow/Velocity Cannula (ICD-10-PCS; 2022-12-25)
PROC: 5A1D70Z Performance of Urinary Filtration, Intermittent, Less than 6 Hours Per Day (ICD-10-PCS; 2022-12-26)
PROC: 5A1D70Z Performance of Urinary Filtration, Intermittent, Less than 6 Hours Per Day (ICD-10-PCS; 2022-12-28)
PROC: 5A09357 Assistance with Respiratory Ventilation, Less than 24 Consecutive Hours, Continuous Positive Airway Pressure (ICD-10-PCS; 2022-12-29)
PROC: 5A0945A Assistance with Respiratory Ventilation, 24-96 Consecutive Hours, High Flow/Velocity Cannula (ICD-10-PCS; 2022-12-29)
PROC: 5A09357 Assistance with Respiratory Ventilation, Less than 24 Consecutive Hours, Continuous Positive Airway Pressure (ICD-10-PCS; 2022-12-29)
DX: A41.9 Sepsis, unspecified organism (principal); J96.21 Acute and chronic respiratory failure with hypoxia; G93.49 Other encephalopathy; J10.00 Influenza due to other identified influenza virus with unspecified type of pneumonia; G93.1 Anoxic brain damage, not elsewhere classified; D69.6 Thrombocytopenia, unspecified; I82.C12 Acute embolism and thrombosis of left internal jugular vein; I13.2 Hypertensive heart and chronic kidney disease with heart failure and with stage 5 chronic kidney disease, or end stage renal disease; I27.29 Other secondary pulmonary hypertension; E87.1 Hypo-osmolality and hyponatremia; N17.9 Acute kidney failure, unspecified; N18.6 End stage renal disease; I42.0 Dilated cardiomyopathy; T82.838A Hemorrhage due to vascular prosthetic devices, implants and grafts, initial encounter; I27.81 Cor pulmonale (chronic); J44.0 Chronic obstructive pulmonary disease with (acute) lower respiratory infection; E66.9 Obesity, unspecified; E87.5 Hyperkalemia; N39.0 Urinary tract infection, site not specified; K92.1 Melena; Z20.822 Contact with and (suspected) exposure to COVID-19; I50.82 Biventricular heart failure; J44.1 Chronic obstructive pulmonary disease with (acute) exacerbation; R74.01 Elevation of levels of liver transaminase levels; E80.6 Other disorders of bilirubin metabolism; Y84.1 Kidney dialysis as the cause of abnormal reaction of the patient, or of later complication, without mention of misadventure at the time of the procedure; I07.1 Rheumatic tricuspid insufficiency; Y92.238 Other place in hospital as the place of occurrence of the external cause; Z99.81 Dependence on supplemental oxygen; Z91.09 Other allergy status, other than to drugs and biological substances; Z99.2 Dependence on renal dialysis; Z79.2 Long term (current) use of antibiotics; Z79.899 Other long term (current) drug therapy; Z56.0 Unemployment, unspecified; Z68.39 Body mass index [BMI] 39.0-39.9, adult
CPT/HCPCS: 36415; 36600; 71045; 80048; 80053; 80074; 80162; 80307; 81000; 82533; 82803-TC; 83036; 83605; 83735; 83880; 84100; 84443; 84484; 85007; 85025; 85027; 85379; 86480; 86803; 87040; 87081; 87086; 93005; 93306; 93923; 93970; 93971; 94010; 94640; 94660; 94760; 97110-GP; 97116-GP; 97530-GP; 99291; G0378; G9035; J0696; J1030; J1160; J1265; J1644; J1650; J1940; J2001; J2405; J2543; J2765; J2930; J3475; J3490; J7050; J7060; J7613